=== PATIENT | male | born 1990 | race African-American/Black ===

== ENCOUNTER 2022-12-06 11:51 | Outpatient (REF) | payer OTHER, SELFPAY ==
[2022-12-06 14:08] LABS: MANUAL DIFF FLAG NO
[2022-12-06 14:21] LABS: Basophils Percent Auto 0.5 % (0-2); Eosinophils Absolute Auto 0.2 X10*3/uL (0.0-0.4); Eosinophils Percent Auto 2.3 % (0-4); Hematocrit 47.4 % (42.0-52.0); Hemoglobin 15.8 g/dl (14.0-18.0); Imm Gran Abs Auto 0.06 X10*3/uL (0.00-0.03); Imm Gran Pct Auto 0.7 % (0.0-0.4); Lymphocytes Absolute Auto 2.2 X10*3/uL (1.2-4.9); Lymphocytes Percent Auto 24.8 % (20-40); Mean Corpuscular HGB Conc 33.3 g/dl (31.0-36.0); Mean Corpuscular Hemoglobin 30.9 pg (27.0-33.0); Mean Corpuscular Volume 92.6 fL (80.0-98.0); Monocytes Absolute Auto 0.6 X10*3/uL (0.1-1.2); Monocytes Percent Auto 6.7 % (2-11); Neutrophils Absolute Auto 5.7 x10*3/uL (2.0-8.3); Platelet Count 248 X10*3/uL (160-400); Red Blood Count 5.12 X10*6/uL (4.60-5.80); Red Cell Distribution Width 13.9 % (11.0-16.0); White Blood Count 8.7 X10*3/uL (4.8-10.8)
[2022-12-06 15:20] LABS: Alanine Aminotransferase 22 U/L (0-40); Albumin Level 4.6 g/dL (3.5-5.0); Alkaline Phosphatase 98 U/L (39-117); Anion Gap 14 (12-20); Aspartate Amino Transferase 16 U/L (5-37); Bilirubin Total 0.8 mg/dL (0.0-1.0); Blood Urea Nitrogen 10 mg/dL (9-16); Calcium 9.6 mg/dL (8.4-10.2); Carbon Dioxide 24 mmol/L (22-29); Chloride 110 mmol/L (96-108); Cholesterol 256 mg/dL; Estimated Glomerular Filt Rate > 60; Glucose Random 101 mg/dL (60-115); HDL Cholesterol 37 mg/dL; LDL Cholesterol Calculated 199 mg/dl; Potassium 4.3 mmol/L (3.3-5.1); Sodium 144 mmol/L (135-145); Total Protein 6.9 g/dL (6.5-8.0); Triglycerides 103 mg/dL
[2022-12-06 15:49] LABS: Folate 12.2 ng/mL (> or = 4.0); Free T4 (Free Thyroxine) 1.09 ng/dL (0.71-1.85); Thyroid Stimulating Hormone 1.46 uIU/mL (0.32-4.0); Vitamin B12 1278 pg/mL (200-900)
== END 2022-12-06 11:52 | disposition home or self-care (01) ==
LOC: HO.HMGCLDS 11:51
PROVIDERS: Visit Provider Internal Medicine
DX: F20.9 Schizophrenia, unspecified (principal); E78.00 Pure hypercholesterolemia, unspecified
CPT/HCPCS: 36415; 80053; 80061; 82607; 82746; 84439; 84443; 85025

== ENCOUNTER 2023-04-25 22:49 | Emergency (ER) | payer OTHER, SELFPAY ==
--- NOTE | ~2023-04-25 | CT_ITS ---
EXAMINATION: CT HEAD WITHOUT CONTRAST CLINICAL INFORMATION: Syncope. Head strike. COMPARISON: None. TECHNIQUE: Contiguous axial imaging was performed from the skull base to vertex without intravenous administration of contrast. Coronal and sagittal reformatted images are performed at the CT scanner. [This CT examination was performed using dose optimization techniques as appropriate, variously including the following: *Automated exposure control *Adjustment of mA and/or kV according to patient size (this includes techniques or standardized protocols for targeted exams where dose is matched to indication/reason for exam; i.e. extremities or head) *Use of iterative reconstruction technique] DLP: 791 mGy-cm. FINDINGS: There is no evidence of acute intracranial hemorrhage or territorial infarction. No abnormal mass-effect or midline shift is seen. [place] to white matter differentiation is well preserved. No extra-axial fluid collections are identified. The ventricles are normal in size. There is no abnormal attenuation within the brain parenchyma. There is no osseous abnormality. The mastoid air cells and visualized portions of the paranasal sinuses are well-aerated. CT/CT head/brain wo IV con IMPRESSION: No acute intracranial pathology.
[2023-04-25 22:53] VITALS: BP 125/84; BP 144/102; PULSE 102; PULSE 91; RESP 18; TEMP 36.9; O2SAT 95; O2SAT 97; BMI 36.2
--- NOTE | 2023-04-25 23:20 | ED_ITS ---
HPI - Syncope General Chief Complaint: Syncope Stated Complaint: +loc w/head lacs per ems Time Seen by Provider: 04/25/23 22:50 Source: patient and EMS (Received report from EMS) Mode of arrival: EMS Limitations: no limitations History of Present Illness HPI narrative: Patient is a 32-year-old male presents emergency department for evaluation of the syncopal episode. Reportedly patient was sitting down for a few hours, upon standing he reports feeling lightheaded, and states that he passed out, believes that he struck his head on the closet door. This was unwitnessed. Duration of LOC was brief, his mother was upstairs and she heard a thump then came downstairs immediately. Patient was alert at this time, and had reported that he hit his head. Patient denies any precipitating symptoms. Denies headache, vision changes, confusion, neck pain, neck stiffness, weakness, chest pain, shortness of breath, difficulty breathing, nausea vomiting, abdominal pain, numbness or tingling of the extremities. Denies any ETOH/drug usage. Per mother, patient has a history of schizophrenia and history of self-harm attempts, but this presentation and his affect afterwards does not appear consistent with prior intentional self-harm attempts. Patient at this time is without any complaints. Lacerations to forehead are without active bleeding at this time. Related Data Home Medications Medication Instructions Recorded Confirmed clozapine 100 mg tablet 300 mg PO DAILY 08/11/22 08/11/22 fluoxetine 40 mg capsule 40 mg PO DAILY 08/11/22 08/11/22 Allergies Allergy/AdvReac Type Severity Reaction Status Date / Time No Known Allergies Allergy Verified 08/11/22 09:19 [No Known Allergies*] Review of Systems Review of Systems: Yes all other systems are reviewed and are negative [facility] Past Medical History Attestation statement: The following information was validated with the patient. Source: old records reviewed Family History Family History (Updated 08/11/22 @ 09:41 by Chente Arango MD) Mother No problems noted. Father No problems noted. Brother No problems noted. Maternal Grandmother Breast cancer Social History Social History (Updated 08/11/22 @ 09:42 by Chente Arango MD) Housing: Condominium Alcohol intake: current Alcohol intake frequency: holidays/special occasions only Patient Tobacco Use Status: Former Tobacco user Years Smoked: quit May 2022 Smoked in Last 30 Days: Yes Use of substances other than those prescribed or required for medical reasons: No Advance Directives: No Advance Directives Information Provided: Yes service: No Current occupational status: unemployed Cognitive needs: No Hearing needs: No Vision needs: Yes Physical Exam Vital Signs: Vital Signs: Last Vital Signs Temp 98.9 F 04/26/23 00:18 Pulse 91 04/26/23 00:18 Resp 20 04/26/23 00:18 BP 133/76 04/26/23 00:18 Pulse Ox 97 04/26/23 00:18 O2 Del Method Room Air 04/26/23 00:18 BMI result Body Mass Index 36.2 Vital signs have been reviewed as normal and appeared to be correct. Blood pressure normal.? Heart rate normal.? Respiration rate normal. Temperature normal.? Oxygen saturation normal. Const: Other: Appearance: Alert.?Oriented to person, place and time. No acute distress.?Normal affect. Head: Normocephalic, superficial linear lacerations approximately 3 cm, no active bleeding to midline anterior forehead Eyes: Pupils equal, round and reactive to light. EOMI. Conjunctiva and sclera normal? No Jennings sign noted. No raccoon eyes noted ENT: No septal hematoma, nares patent bilaterally. External auditory canal normal tympanic membrane pearly quarles and intact bilaterally. Dentition normal, no fractured teeth. No lesions or lacerations of oropharynx. Uvula midline. Moist mucous membranes. Neck: Normal inspection.? Neck supple.??No palpable midline tenderness, step- off, deformities. CVS: Heart sounds normal. Normal heart rate and rhythm.? Pulses normal.?? Respiratory: No respiratory distress.? Lung sounds clear to auscultation bilaterally?? Abdomen: Soft and non-tender. Normoactive bowel sounds. ?? Skin: Skin warm and dry.? Normal skin color.? Normal skin turgor.?? Extremities: No lower extremity edema.? Neuro: Moves all extremities spontaneously. Sensation intact bilaterally. CN II- XII intact. No focal neuro deficits. Course Reevaluation(s) Reevaluation #1: No red flag symptoms in history, no preceding symptoms such as chest pain, shortness of breath, palpitations, or neurological deficit, nonexertional, no pertinent past medical history, no reported past medical history and family of sudden cardiac at a young age or cardiomyopathy. With no reports of short ness of breath. No significant EKG abnormality,/signs of ischemia, no bradycardia, no hypotension. Orthostatic vital signs are negative. CT of the head without acute intracranial pathology at this time Time: 00:07 Reevaluation #2: EKG with no acute ischemia, no STEMI, normal sinus rhythm. CBC is overall unremarkable. CMP is overall unremarkable. BMP within normal limits. Troponin <2.7, unlikely ACS. D-dimer <150, unlikely PE. History seems most consistent with vasovagal episode. At this time patient is stable for discharge home. Lacerations to the forehead very superficial, cleanse with normal saline, applie d Steri-Strips and skin glue. Reviewed worrisome signs and symptoms that would warrant re-evaluation in the emergency department. Patient and mother verbalized understanding. Will follow up with primary care outpatient. Reviewed case with ED attending, agrees with plan of care. Time: 01:24 Medical Decision Making Medical Decision Making [facility] Narrative: Patient is a 32-year-old male with past medical history of obesity, schizophrenia presenting to emergency department for evaluation of a syncopal episode with sustained lacerations to forehead. Patient reports otherwise feeling well throughout today, upon standing developed lightheadedness and subsequently syncopized. Use of anticoagulants. However given mechanism of injury and syncope will obtain CT of the head for further evaluation. Will obtain CBC to evaluate for leukocytosis/ anemia, CMP and lipase to evaluate for abnormal electrolytes /abnormal renal function/ abnormal hepatic/biliary function, EKG and troponin to evaluate for ischemia/ACS, and Urinalysis. Will obtain orthostatic vital signs. Differential Diagnosis Differential Diagnoses: The differential diagnosis associated with the presentation includes (Orthostatic hypotension, dehydration, ACS, PE, infectious etiology, arrhythmia, SAH, CVA) Admission/Observation Consideration of admission/observation: Escalation of care including admission/observation considered I considered admission for patient, however high-risk past medical history, no abnormal serum labs, EKG, head CT findings. Outpatient follow-up most lambert ropriate Lab Data [facility] Lab Attestation statement: I reviewed the patient's lab results. 04/26/23 00:14 04/26/23 00:14 Labs: Lab Results 04/26/23 04/26/23 04/26/23 Range/Units 00:14 00:14 00:14 WBC 11.3 H (4.8-10.8) X10*3/uL RBC 4.72 (4.60-5.80) X10*6/uL Hgb 14.7 (14.0-18.0) g/dl Hct 43.4 (42.0-52.0) % MCV 91.9 (80.0-98.0) fL MCH 31.1 (27.0-33.0) pg MCHC 33.9 (31.0-36.0) g/dl RDW 13.7 (11.0-16.0) % Plt Count 207 (160-400) X10*3/uL MPV 10.8 (9.4-12.4) fL Immature Gran % (Auto) 0.9 H (0.0-0.4) % Neut % (Auto) 64.5 (45-73) % Lymph % (Auto) 22.9 (20-40) % [place] % (Auto) 7.7 (2-11) % Eos % (Auto) 3.6 (0-4) % Baso % (Auto) 0.4 (0-2) % Lymph # (Auto) 2.6 (1.2-4.9) X10*3/uL [place] # (Auto) 0.9 (0.1-1.2) X10*3/uL Eos # (Auto) 0.4 (0.0-0.4) X10*3/uL Baso # (Auto) 0.1 (0.0-0.2) X10*3/uL Abs Immat Gran (auto) 0.10 H (0.00-0.03) X10*3/uL Absolute Neuts (auto) 7.3 (2.0-8.3) x10*3/uL Absolute Nucleated RBC 0.000 (0.0-0.012) X10*3/uL Nucleated RBC % (auto) 0.0 (0.0-0.2) /100WBC PT (10.0-13.1) SEC INR (0.9-1.1) D-Dimer High Sensitivty NG/ML Sodium 144 (135-145) mmol/L Potassium 3.7 (3.3-5.1) mmol/L Chloride 109 H (96-108) mmol/L Carbon Dioxide 24 (22-29) mmol/L Anion Gap 15 (12-20) BUN 12 (9-16) mg/dL Creatinine 1.11 (0.5-1.4) mg/dL Estim Creat Clear Calc 118.4 Estimated GFR > 60 Random Glucose 103 (60-115) mg/dL Calcium 9.8 (8.4-10.2) mg/dL Magnesium 2.1 (1.6-2.6) mg/dL Total Bilirubin 0.5 (0.0-1.0) mg/dL AST 16 (5-37) U/L ALT 21 (0-40) U/L Alkaline Phosphatase 93 (39-117) U/L Troponin I High Sens < 2.7 (<3.5-35.0) ng/L B-Natriuretic Peptide (<100) pg/mL Total Protein 6.9 (6.5-8.0) g/dL Albumin 4.2 (3.5-5.0) g/dL Lipase 33 (8-78) U/L Ethyl Alcohol mg/dL COVID-19 (RADHA) (Negative) COVID-19 Clin Com 04/26/23 04/26/23 04/26/23 Range/Units 00:14 00:14 00:14 WBC (4.8-10.8) X10*3/uL RBC (4.60-5.80) X10*6/uL Hgb (14.0-18.0) g/dl Hct (42.0-52.0) % MCV (80.0-98.0) fL MCH (27.0-33.0) pg MCHC (31.0-36.0) g/dl RDW (11.0-16.0) % Plt Count (160-400) X10*3/uL MPV (9.4-12.4) fL Immature Gran % (Auto) (0.0-0.4) % Neut % (Auto) (45-73) % Lymph % (Auto) (20-40) % [place] % (Auto) (2-11) % Eos % (Auto) (0-4) % Baso % (Auto) (0-2) % Lymph # (Auto) (1.2-4.9) X10*3/uL [place] # (Auto) (0.1-1.2) X10*3/uL Eos # (Auto) (0.0-0.4) X10*3/uL Baso # (Auto) (0.0-0.2) X10*3/uL Abs Immat Gran (auto) (0.00-0.03) X10*3/uL Absolute Neuts (auto) (2.0-8.3) x10*3/uL Absolute Nucleated RBC (0.0-0.012) X10*3/uL Nucleated RBC % (auto) (0.0-0.2) /100WBC PT 11.4 (10.0-13.1) SEC INR 1.0 (0.9-1.1) D-Dimer High Sensitivty < 150 NG/ML Sodium (135-145) mmol/L Potassium (3.3-5.1) mmol/L Chloride (96-108) mmol/L Carbon Dioxide (22-29) mmol/L Anion Gap (12-20) BUN (9-16) mg/dL Creatinine (0.5-1.4) mg/dL Estim Creat Clear Calc Estimated GFR Random Glucose (60-115) mg/dL Calcium (8.4-10.2) mg/dL Magnesium (1.6-2.6) mg/dL Total Bilirubin (0.0-1.0) mg/dL AST (5-37) U/L ALT (0-40) U/L Alkaline Phosphatase (39-117) U/L Troponin I High Sens (<3.5-35.0) ng/L B-Natriuretic Peptide (<100) pg/mL Total Protein (6.5-8.0) g/dL Albumin (3.5-5.0) g/dL Lipase (8-78) U/L Ethyl Alcohol < 10 mg/dL COVID-19 (RADHA) Negative (Negative) COVID-19 Clin Com See Note 04/26/23 Range/Units 00:14 WBC (4.8-10.8) X10*3/uL RBC (4.60-5.80) X10*6/uL Hgb (14.0-18.0) g/dl Hct (42.0-52.0) % MCV (80.0-98.0) fL MCH (27.0-33.0) pg MCHC (31.0-36.0) g/dl RDW (11.0-16.0) % Plt Count (160-400) X10*3/uL MPV (9.4-12.4) fL Immature Gran % (Auto) (0.0-0.4) % Neut % (Auto) (45-73) % Lymph % (Auto) (20-40) % [place] % (Auto) (2-11) % Eos % (Auto) (0-4) % Baso % (Auto) (0-2) % Lymph # (Auto) (1.2-4.9) X10*3/uL [place] # (Auto) (0.1-1.2) X10*3/uL Eos # (Auto) (0.0-0.4) X10*3/uL Baso # (Auto) (0.0-0.2) X10*3/uL Abs Immat Gran (auto) (0.00-0.03) X10*3/uL Absolute Neuts (auto) (2.0-8.3) x10*3/uL Absolute Nucleated RBC (0.0-0.012) X10*3/uL Nucleated RBC % (auto) (0.0-0.2) /100WBC PT (10.0-13.1) SEC INR (0.9-1.1) D-Dimer High Sensitivty NG/ML Sodium (135-145) mmol/L Potassium (3.3-5.1) mmol/L Chloride (96-108) mmol/L Carbon Dioxide (22-29) mmol/L Anion Gap (12-20) BUN (9-16) mg/dL Creatinine (0.5-1.4) mg/dL Estim Creat Clear Calc Estimated GFR Random Glucose (60-115) mg/dL Calcium (8.4-10.2) mg/dL Magnesium (1.6-2.6) mg/dL Total Bilirubin (0.0-1.0) mg/dL AST (5-37) U/L ALT (0-40) U/L Alkaline Phosphatase (39-117) U/L Troponin I High Sens (<3.5-35.0) ng/L B-Natriuretic Peptide < 10 (<100) pg/mL Total Protein (6.5-8.0) g/dL Albumin (3.5-5.0) g/dL Lipase (8-78) U/L Ethyl Alcohol mg/dL COVID-19 (RADHA) (Negative) COVID-19 Clin Com Independent Interpretation I performed an independent interpretation of an: EKG and CT Scan (I have personally interpreted CT imaging and agree with radiologist impression) Interpretation: Rate: 82 Rhythm: Normal sinus rhythm? [place]:? Normal Normal P waves.? Normal RHODA.?? Normal QRS complex.?? ST T wave :??No ST elevation, no ST depression qTC: 464 The study has been interpreted contemporaneously by me. Radiology Impression Discussion of test interpretation with radiology: I have reviewed the radiologist's reading. Radiologist Impression: CT/CT head/brain wo IV con IMPRESSION: No acute intracranial pathology. ? Independent Historian Clinical information obtained from an independent historian. History obtained from or confirmed by: Parent (Mother who confirms history) Discharge Plan Discharge Clinical Impression: Vasovagal syncope Patient Disposition: Home, Self-Care Instructions: Syncope (ED) Additional Instructions: As discussed, your blood work, and EKG were normal today. The CT imaging of your head was also normal. This all very reassuring. Please take caution to slowly change positions especially after sitting down for long periods. Be sure to stay well hydrated and drink plenty of fluids. Please contact your primary care provider and arrange for a follow-up visit within the next 1-3 days. You may return back to the emergency department with any new or worsening symptoms or concerns. Prescriptions: No Action fluoxetine 40 mg capsule 40 mg PO DAILY clozapine 100 mg tablet 300 mg PO DAILY Rx Instructions: Dr. Gonzalez [facility] Referrals: Physician,Unknown J [Primary Care Provider] - Interventions: ED Discharge Assessment Last Done: 04/26/23 01:49 Discharge Date/Time: 04/26/23 01:49
--- NOTE | 2023-04-25 23:20 | ECG_ITS ---
Test Reason : SYNCOPE Blood Pressure : / mmHG Vent. Rate : 082 BPM Atrial Rate : 082 BPM P-R Int : 128 ms QRS Dur : 096 ms QT Int : 398 ms P-R-T Axes : 000 047 017 degrees QTc Int : 464 ms Normal sinus rhythm Nonspecific T wave abnormality Abnormal ECG No previous ECGs available Referred By: Shayna Linda Electronically Signed By:MEME ISRAEL
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
[2023-04-25 23:58] VITALS: BP 117/73; PULSE 85
[2023-04-25 23:59] VITALS: BP 124/79; PULSE 85
[2023-04-26] VITALS: BP 118/72; PULSE 102
[2023-04-26 00:18] VITALS: BP 133/76; PULSE 91; RESP 20; TEMP 37.2; O2SAT 97
[2023-04-26 00:19] LABS: MANUAL DIFF FLAG NO
--- NOTE | 2023-04-26 00:19 | MHC.EDTECH ---
PATIENT EKG DONE AND WAS READ BY PROVIDER ,BLOOD DRAWN AND COVID SWAB COLLECTED AND SENT TO LAB ,ORTHOSTATICS VITALS DONE AND 0000 VITALS DONE ,PT AT BEDSIDE ,PT RESTING QUIETLY IN BED .
[2023-04-26 00:20] LABS: Basophils Absolute Auto 0.1 X10*3/uL (0.0-0.2); Basophils Percent Auto 0.4 % (0-2); Eosinophils Absolute Auto 0.4 X10*3/uL (0.0-0.4); Eosinophils Percent Auto 3.6 % (0-4); Hematocrit 43.4 % (42.0-52.0); Hemoglobin 14.7 g/dl (14.0-18.0); Imm Gran Pct Auto 0.9 % (0.0-0.4); Lymphocytes Absolute Auto 2.6 X10*3/uL (1.2-4.9); Lymphocytes Percent Auto 22.9 % (20-40); Mean Corpuscular HGB Conc 33.9 g/dl (31.0-36.0); Mean Corpuscular Hemoglobin 31.1 pg (27.0-33.0); Mean Corpuscular Volume 91.9 fL (80.0-98.0); Mean Platelet Volume 10.8 fL (9.4-12.4); Monocytes Absolute Auto 0.9 X10*3/uL (0.1-1.2); Monocytes Percent Auto 7.7 % (2-11); Neutrophils Absolute Auto 7.3 x10*3/uL (2.0-8.3); Neutrophils Percent Auto 64.5 % (45-73); Platelet Count 207 X10*3/uL (160-400); Red Blood Count 4.72 X10*6/uL (4.60-5.80); Red Cell Distribution Width 13.7 % (11.0-16.0); White Blood Count 11.3 X10*3/uL (4.8-10.8)
[2023-04-26 00:26] LABS: Prothrombin Time 11.4 SEC (10.0-13.1)
[2023-04-26 00:35] LABS: COVID-19 Test Negative (Negative); Ethanol < 10 mg/dL; IDNOW Serial# 08D9AD1C
[2023-04-26 00:36] LABS: Alanine Aminotransferase 21 U/L (0-40); Albumin Level 4.2 g/dL (3.5-5.0); Alkaline Phosphatase 93 U/L (39-117); Anion Gap 15 (12-20); Aspartate Amino Transferase 16 U/L (5-37); Bilirubin Total 0.5 mg/dL (0.0-1.0); Blood Urea Nitrogen 12 mg/dL (9-16); Calcium 9.8 mg/dL (8.4-10.2); Carbon Dioxide 24 mmol/L (22-29); Chloride 109 mmol/L (96-108); Creatinine Clr Calc Pharmacy 118.4; D Dimer High Sensitivity < 150 NG/ML; Estimated Glomerular Filt Rate > 60; Glucose Random 103 mg/dL (60-115); Lipase 33 U/L (8-78); Magnesium 2.1 mg/dL (1.6-2.6); Potassium 3.7 mmol/L (3.3-5.1); Sodium 144 mmol/L (135-145); Total Protein 6.9 g/dL (6.5-8.0)
[2023-04-26 00:42] LABS: B Type Natriuretic Peptide < 10 pg/mL (<100)
[2023-04-26 00:47] LABS: Troponin-I High Sensitivity < 2.7 ng/L (<3.5-35.0)
== END 2023-04-26 01:49 | disposition home or self-care (01) ==
PROVIDERS: Nurse Practitioner Family; Emergency Provider Emergency Medicine
DX: S09.90XA Unspecified injury of head, initial encounter (principal); R55 Syncope and collapse; R51.9 Headache, unspecified; R06.02 Shortness of breath; W18.30XA Fall on same level, unspecified, initial encounter; Y92.9 Unspecified place or not applicable; Y99.9 Unspecified external cause status; Y93.9 Activity, unspecified; Z20.822 Contact with and (suspected) exposure to COVID-19; Z20.828 Contact with and (suspected) exposure to other viral communicable diseases; Z79.899 Other long term (current) drug therapy
CPT/HCPCS: 36415; 70450; 80053; 80307; 83690; 83735; 83880; 84484; 85025; 85379; 85610; 87635; 93005; 99284; 99285

== ENCOUNTER 2023-06-14 00:01 | Inpatient (IN) | payer OTHER, SELFPAY ==
[2023-06-14] VITALS (30 sets, daily range): BP systolic 98–134; BP diastolic 61–83; PULSE 18–112; RESP 16–77; TEMP 36.6–37.1; O2SAT 93–99; BMI 27.4
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
[2023-06-14] MEDS: OLANZapine 10 MG VIAL IM (00:17)
[2023-06-14] MEDS: Midazolam HCl/PF 2 MG/2 ML VIAL 5 MG IM (00:17)
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
[2023-06-14 00:55] LABS: Basophils Absolute Auto 0.1 X10*3/uL (0.0-0.2); Basophils Percent Auto 0.3 % (0-2); Eosinophils Absolute Auto 0.3 X10*3/uL (0.0-0.4); Eosinophils Percent Auto 1.6 % (0-4); Hematocrit 43.4 % (42.0-52.0); Hemoglobin 14.7 g/dl (14.0-18.0); Imm Gran Abs Auto 0.11 X10*3/uL (0.00-0.03); Imm Gran Pct Auto 0.7 % (0.0-0.4); Lymphocytes Absolute Auto 2.5 X10*3/uL (1.2-4.9); Lymphocytes Percent Auto 15.8 % (20-40); MANUAL DIFF FLAG NO; Mean Corpuscular HGB Conc 33.9 g/dl (31.0-36.0); Mean Corpuscular Hemoglobin 30.7 pg (27.0-33.0); Mean Corpuscular Volume 90.6 fL (80.0-98.0); Mean Platelet Volume 10.2 fL (9.4-12.4); Monocytes Absolute Auto 0.8 X10*3/uL (0.1-1.2); Monocytes Percent Auto 4.9 % (2-11); Neutrophils Absolute Auto 12.3 x10*3/uL (2.0-8.3); Neutrophils Percent Auto 76.7 % (45-73); Platelet Count 218 X10*3/uL (160-400); Red Blood Count 4.79 X10*6/uL (4.60-5.80); Red Cell Distribution Width 13.9 % (11.0-16.0)
[2023-06-14 01:08] LABS: Alanine Aminotransferase 19 U/L (0-40); Albumin Level 4.3 g/dL (3.5-5.0); Alkaline Phosphatase 79 U/L (39-117); Anion Gap 14 (12-20); Aspartate Amino Transferase 15 U/L (5-37); Bilirubin Total 0.4 mg/dL (0.0-1.0); Blood Urea Nitrogen 12 mg/dL (9-16); Calcium 9.3 mg/dL (8.4-10.2); Carbon Dioxide 20 mmol/L (22-29); Chloride 112 mmol/L (96-108); Creatinine Clr Calc Pharmacy 104.5; Estimated Glomerular Filt Rate > 60; Glucose Random 105 mg/dL (60-115); Potassium 3.4 mmol/L (3.3-5.1); Sodium 143 mmol/L (135-145); Total Protein 6.8 g/dL (6.5-8.0)
--- NOTE | 2023-06-14 02:34 | MHC.EDTECH ---
vitals sign taken ,patient sleeping ,patient observer at bedside .
[2023-06-14 02:38] LABS: Ethanol < 10 mg/dL
[2023-06-14 03:56] LABS: Acetaminophen LAB < 17 mcg/mL (<30); Salicylate < 5.0 mg/dL (15-30)
--- NOTE | 2023-06-14 07:54 | PC.NURSE ---
pt sleeping in stretcher at this time. respirations even and unlabored. skin warm and dry; color appropriate to ethnicity. vss. sitter at bedside.
--- NOTE | 2023-06-14 10:04 | PC.NURSE ---
Pt awoke, ambulate to bathroom. Mom here to visit. Steady to bathroom. Still awaiting urine spec
--- NOTE | 2023-06-14 10:33 | PC.NURSE ---
Mom brought pt phone, pt aware no cell phone use, pt agreeable. Placed with other belongings Locker 10
[2023-06-14 13:23] LABS: Amphetamine Screen Urine Not Detected (Not Detect); Barbiturates, Urine Not Detected (Not Detect); Benzodiazepines Screen Urine POSITIVE (Not Detect); Cannabinoid Screen Urine POSITIVE (Not Detect); Cocaine Screen Urine Not Detected (Not Detect); Fentanyl, urine Not Detected (Not Detect); Opiate Screen Urine Not Detected (Not Detect); Phencyclidine Screen Urine Not Detected (Not Detect)
[2023-06-14 16:51] LABS: Appearance Urine Clear; Color Urine Yellow; Glucose Urine UA Negative (Negative); Leukocyte Esterase Urine Trace (Negative); Nitrite Urine Negative (Negative); PH 6.5 (5.0-9.0); Specific Gravity - Urine 1.025 (1.005-1.025); UMIC TRIGGER UA YES; Urine Blood Negative (Negative); Urine Ketones Trace mg/dL (Negative); Urine Protein Trace mg/dL (Neg-Trace)
[2023-06-14 16:56] LABS: Bacteria Urine None Seen (None Seen); Hyaline Casts Urine 0-2 /LPF (0-2); RBC Urine 0-2 /HPF (0-2); Squamous Epithelial Cell Urine 0-2 /HPF (0-2); WBC Urine 0-5 /HPF (0-5)
[2023-06-14] MEDS: diphenhydrAMINE HCL 50 MG/ML VIAL IM (17:03)
[2023-06-14] MEDS: LORazepam 2 MG/ML VIAL IM (17:03)
[2023-06-14] MEDS: Haloperidol Lactate 5 MG/ML VIAL IM (17:04)
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
--- NOTE | 2023-06-14 18:38 | PC.NURSE ---
Left arm released as pt requesting to eat dinner. Security and Jeffrey PA aware. Pt able to state he can remain safe at this time. Will attempt another limb when appropriate. Pt denies pain or discomfort.
--- NOTE | 2023-06-14 22:15 | PHA.MEDREC ---
Pharmacy Consult ? Medication Reconciliation Pharmacy has completed the medication reconciliation. Patient report medications. Reported last dose of clozaril was last night 06/13/23
--- NOTE | 2023-06-15 | ECG_ITS ---
Test Reason : PSYCH MED Blood Pressure : / mmHG Vent. Rate : 077 BPM Atrial Rate : 077 BPM P-R Int : 124 ms QRS Dur : 094 ms QT Int : 390 ms P-R-T Axes : 011 062 030 degrees QTc Int : 441 ms Normal sinus rhythm Normal ECG When compared with ECG of 25-APR-2023 23:47, Nonspecific T wave abnormality no longer evident in Lateral leads Referred By: Rudy Parada Electronically Signed By:Juan Diego Marin
--- NOTE | 2023-06-15 00:17 | PC.NURSE ---
this RN assumed care of patient at 23:15. went in room to update vital signs and pt found to be in 3 point physical restraints (RA, LL, RL). looking back into chart pt was placed in restraints at 16:52. flight manager and provider made aware. This RN called security to assist at bedside with removal of all three restraints. all restraints removed at 23:30. pt calm and cooperative, pt speaking clear full sentences responding to questions appropriately, cms intact, skin checked at all 4 extremities with provider at bedside. pt moving all extremities with no issues, offers no current complaints, reports just feeling tired. pt given cherise crackers and water as requested. vital signs updated, will ctm closely.
[2023-06-15 01:26] VITALS: BP 102/67; PULSE 60; RESP 18; O2SAT 98
--- NOTE | 2023-06-15 02:18 | PC.NURSE ---
pt is sleeping comfortably on stretcher in no apparent distress. respirations are even and unlabored. call fontaine within reach, sitter in place, will ctm
[2023-06-15 02:36] VITALS: BP 102/64; PULSE 70; O2SAT 99
[2023-06-15 07:22] VITALS: BP 101/74; PULSE 69; RESP 17; O2SAT 99
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
[2023-06-15 15:57] LABS: COVID-19 Test Negative (Negative); IDNOW Serial# 08D9AD1C
[2023-06-15 16:16] VITALS: BP 114/75; PULSE 70; RESP 18; TEMP 37; O2SAT 98
--- NOTE | 2023-06-15 19:28 | PC.NURSE ---
Pt aox4 resting at the bedside. Calm and cooperative. Denies SI/HI at this time. 1:1 sitter at bedside.
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
--- NOTE | 2023-06-15 20:15 | PC.NURSE ---
Pts momKailey, called for an update.
[2023-06-15] MEDS: cloZAPine 100 MG TABLET 300 MG PO (21:38)
--- NOTE | 2023-06-16 02:11 | PC.NURSE ---
Pt sleeping at the bedside, in no apparent distress. Breaths are even regular and unlabored. 1:1 sitter at bedside. Will continue to monitor.
[2023-06-16 06:00] VITALS: RESP 16
--- NOTE | 2023-06-16 07:51 | MHC.CARE ---
FYI - Per collateral reports, pt does not live in a care home. Pt resides at home with his Mother, step father, and younger brother.
--- NOTE | 2023-06-16 09:09 | PC.NURSE ---
pt is a/o x 3 no sob/arnoldo noted speaks in full sentences. pt denies any si/hi. no restraints. pt is sitting up in bed. pt aware of plan of care.
--- NOTE | 2023-06-16 09:47 | PC.NURSE ---
rn to rn report given to juan david fiore pt is agreeable to going to the pod. pt to the pod with event security officer. pt aware of plan of care.
--- NOTE | 2023-06-16 10:01 | MHC.CARE ---
CARE Team received call from Pts mother stating Pt was very paranoid and stating people are out to get him and he is afraid staff are poisoning him , she stated she is concerned he is going to freak out again. T/w notified RN regarding Pts mothers concern
--- NOTE | 2023-06-16 11:58 | MHC.CARE ---
Pt gave t/w verbal permission to provide information to his mother regarding plan of care.
[2023-06-16 16:35] VITALS: BP 127/83; PULSE 78; RESP 18; TEMP 36.1; O2SAT 97
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
[2023-06-16 21:00] VITALS: BP 125/72; PULSE 68; RESP 18; TEMP 36.8; O2SAT 99
[2023-06-16] MEDS: cloZAPine 100 MG TABLET 300 MG PO (21:26)
[2023-06-17 12:10] VITALS: BP 120/74; PULSE 72; RESP 16; TEMP 36.6; O2SAT 97
[2023-06-17] MEDS: FLUoxetine HCl 20 MG CAPSULE 40 MG PO (13:12)
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
[2023-06-17 20:00] VITALS: BP 132/79; PULSE 90; RESP 16; TEMP 36.1; O2SAT 99
[2023-06-17] MEDS: cloZAPine 100 MG TABLET 300 MG PO (21:01)
[2023-06-18 06:00] VITALS: BP 131/80; PULSE 111; RESP 16; TEMP 35.9; O2SAT 97
[2023-06-18] MEDS: FLUoxetine HCl 20 MG CAPSULE 40 MG PO (09:15)
--- NOTE | 2023-06-18 16:02 | P.PNPSI_ITS ---
Subjective Subjective Date of Service: 06/18/23 Reason For Visit: psychosis Interim History: pt seen was calm cooperative not combative accepting medication withdrawn Medication Compliance: Yes Mental Status Exam Mental Status Exam Narrative: Appearance:lambert dress lying in bed Behavior: calm Psychomotor: no overt agitation Speech: clear, normal rate/rhythm/volume, spontaneous TP: mostly linear TC: thought blocking, some tangentiality SI: denies VH/AH: denies Delusions: none expressed Insight/judgment: impaired x 2. Diagnostics Vital Signs (24Hr): Vital Signs - 24 hr 06/17/23 20:00 06/18/23 06:00 Temperature 97 F 96.7 F L Pulse Rate 90 111 H Respiratory Rate 16 16 Blood Pressure 132/79 131/80 Pulse Oximetry 99 97 Oxygen Delivery Method Room Air Room Air BMI result Body Mass Index 27.4 Labs 06/14/23 00:51 06/14/23 00:51 Medications Medications Current Medications Acetaminophen (Acetaminophen 325 Mg Tablet) 650 mg PO Q6H PRN PRN Reason: Headache/Pain Mild Scale (1-3) Al Hydroxide/Mg Hydroxide (Magnesium Hydrox/Alum Hydrox 30 Ml Oral.Susp) 30 ml PO Q6H PRN PRN Reason: Heartburn/Nausea Clozapine (Clozapine 100 Mg Tablet) 300 mg PO BEDTIME [facility] Last Admin: 06/17/23 21:01 Dose: 300 mg Fluoxetine HCl (Fluoxetine Hcl 20 Mg Capsule) 40 mg PO DAILY [facility] Last Admin: 06/18/23 09:15 Dose: 40 mg Haloperidol (Haloperidol 5 Mg Tablet) 5 mg PO Q6H PRN PRN Reason: agitation Hydroxyzine HCl (Hydroxyzine Hcl 25 Mg Tablet) 25 mg PO Q6H PRN PRN Reason: Anxiety Lorazepam (Lorazepam 1 Mg Tablet) 2 mg PO Q6H PRN PRN Reason: agitation Magnesium Hydroxide (Milk Of Magnesia 30 Ml Oral.Susp) 30 ml PO DAILY PRN PRN Reason: Constipation Nicotine Polacrilex (Nicotine Polacrilex 2 Mg Gum) 4 mg BUCCAL Q2H PRN PRN Reason: Nicotine Cravings Trazodone HCl (Trazodone Hcl 50 Mg Tablet) 50 mg PO BEDTIME [id number] PRN PRN Reason: Insomnia Allergies Allergies Allergy/AdvReac Type Severity Reaction Status Date / Time No Known Allergies Allergy Verified 08/11/22 09:19 [No Known Allergies*] Assessment & Plan Assessment & Plan (1) Schizophrenia: Status: Acute Code(s): F20.9 - Schizophrenia, unspecified Plan continue clozapine 300 mg QHS, prozac 40 mg daily. further collateral, observation, and assessment of Sx. clozapine level drawn, pending. 06/18 cont plan of care pt cooperative somewhat fatigued Reason for continued inpatient stay Substantial Risk for: inability to function and rapid decompensation Time Spent With Patient Time: Total time managing care of this patient today ____ minutes.
[2023-06-18 19:40] VITALS: BP 116/70; PULSE 82; RESP 16; TEMP 36.6; O2SAT 100
[2023-06-18] MEDS: cloZAPine 100 MG TABLET 300 MG PO (20:28)
[2023-06-19] MEDS: FLUoxetine HCl 20 MG CAPSULE 40 MG PO (09:22)
[2023-06-19 09:50] VITALS: BP 90/52; PULSE 88; RESP 16; TEMP 36.8; O2SAT 96
--- NOTE | 2023-06-19 10:08 | HO.PSYCHPN ---
Subjective Subjective Date of Service: 06/19/23 Reason For Visit: psychosis Interim History: Patient has been in behavioral control since being on the unit. Patient seen case reviewed with nursing staff 06/19/2023 Patient denies commands to harm others or himself. Seems somewhat isolated and sedated Medication Compliance: Yes Mental Status Exam Mental Status Exam Narrative: Appearance:lambert dress lying in bed Behavior: calm Psychomotor: no overt agitation Speech: clear, normal rate/rhythm/volume, spontaneous TP: mostly linear TC: thought blocking, some tangentiality SI: denies VH/AH: denies Delusions: none expressed Insight/judgment: impaired x 2. Diagnostics Vital Signs (24Hr): Vital Signs - 24 hr 06/18/23 19:40 06/19/23 09:50 Temperature 97.8 F 98.2 F Pulse Rate 82 88 Respiratory Rate 16 16 Blood Pressure 116/70 90/52 L Pulse Oximetry 100 96 Oxygen Delivery Method Room Air Room Air BMI result Body Mass Index 27.4 Labs 06/14/23 00:51 06/14/23 00:51 Medications Medications Current Medications Acetaminophen (Acetaminophen 325 Mg Tablet) 650 mg PO Q6H PRN PRN Reason: Headache/Pain Mild Scale (1-3) Al Hydroxide/Mg Hydroxide (Magnesium Hydrox/Alum Hydrox 30 Ml Oral.Susp) 30 ml PO Q6H PRN PRN Reason: Heartburn/Nausea Clozapine (Clozapine 100 Mg Tablet) 300 mg PO BEDTIME [facility] Last Admin: 06/18/23 20:28 Dose: 300 mg Fluoxetine HCl (Fluoxetine Hcl 20 Mg Capsule) 40 mg PO DAILY [facility] Last Admin: 06/19/23 09:22 Dose: 40 mg Haloperidol (Haloperidol 5 Mg Tablet) 5 mg PO Q6H PRN PRN Reason: agitation Hydroxyzine HCl (Hydroxyzine Hcl 25 Mg Tablet) 25 mg PO Q6H PRN PRN Reason: Anxiety Lorazepam (Lorazepam 1 Mg Tablet) 2 mg PO Q6H PRN PRN Reason: agitation Magnesium Hydroxide (Milk Of Magnesia 30 Ml Oral.Susp) 30 ml PO DAILY PRN PRN Reason: Constipation Nicotine Polacrilex (Nicotine Polacrilex 2 Mg Gum) 4 mg BUCCAL Q2H PRN PRN Reason: Nicotine Cravings Trazodone HCl (Trazodone Hcl 50 Mg Tablet) 50 mg PO BEDTIME [id number] PRN PRN Reason: Insomnia Allergies Allergies Allergy/AdvReac Type Severity Reaction Status Date / Time No Known Allergies Allergy Verified 08/11/22 09:19 [No Known Allergies*] Assessment & Plan Assessment & Plan (1) Schizophrenia: Status: Acute Code(s): F20.9 - Schizophrenia, unspecified Plan continue clozapine 300 mg QHS, prozac 40 mg daily. further collateral, observation, and assessment of Sx. clozapine level drawn, pending. 06/18 cont plan of care pt cooperative somewhat fatigued 06/19/2023 Patient seen chart reviewed case reviewed with nursing staff there is a Prozac clozapine interactions this should increase clozapine levels monitor response Reason for continued inpatient stay Substantial Risk for: harm to others and rapid decompensation Time Spent With Patient Time: Total time managing care of this patient today ____ minutes.
[2023-06-19 20:50] VITALS: BP 129/70; PULSE 85; RESP 16; TEMP 36.6; O2SAT 95
[2023-06-19] MEDS: cloZAPine 100 MG TABLET 300 MG PO (21:10)
[2023-06-20] MEDS: FLUoxetine HCl 20 MG CAPSULE 40 MG PO (11:35)
[2023-06-20 11:49] VITALS: BP 127/69; PULSE 96; RESP 16; TEMP 36.6; O2SAT 99
--- NOTE | 2023-06-20 16:08 | P.PNPSI_ITS ---
Subjective Subjective Date of Service: 06/20/23 Reason For Visit: psychosis Interim History: calm, cooperative. feeling well, denies any psych Sx. feeling reasonably safe and comfortable on the unit. per staff, quiet, depressed, flat. taking meds. appears preoccupied. isolative. dep 7, anx 2. feeling ready for DC. Mental Status Exam Mental Status Exam Narrative: Appearance: wearing street clothes, good hygiene in NAD Behavior: calm Psychomotor: no agitation Speech: clear, normal rate/rhythm/volume, spontaneous TP: linear TC: no delusions or paranoia expressed mood: i'm ok. SI: denies HI: denies VH/AH: denies Delusions: none expressed Insight/judgment: impaired x 2. Diagnostics Vital Signs (24Hr): Vital Signs - 24 hr 06/19/23 20:50 06/20/23 11:49 Temperature 97.8 F 97.8 F Pulse Rate 85 96 Respiratory Rate 16 16 Blood Pressure 129/70 127/69 Pulse Oximetry 95 99 Oxygen Delivery Method Room Air Room Air BMI result Body Mass Index 27.4 Labs 06/14/23 00:51 06/14/23 00:51 Medications Medications Current Medications Acetaminophen (Acetaminophen 325 Mg Tablet) 650 mg PO Q6H PRN PRN Reason: Headache/Pain Mild Scale (1-3) Al Hydroxide/Mg Hydroxide (Magnesium Hydrox/Alum Hydrox 30 Ml Oral.Susp) 30 ml PO Q6H PRN PRN Reason: Heartburn/Nausea Clozapine (Clozapine 100 Mg Tablet) 300 mg PO BEDTIME [facility] Last Admin: 06/19/23 21:10 Dose: 300 mg Fluoxetine HCl (Fluoxetine Hcl 20 Mg Capsule) 40 mg PO DAILY [facility] Last Admin: 06/20/23 11:35 Dose: 40 mg Haloperidol (Haloperidol 5 Mg Tablet) 5 mg PO Q6H PRN PRN Reason: agitation Hydroxyzine HCl (Hydroxyzine Hcl 25 Mg Tablet) 25 mg PO Q6H PRN PRN Reason: Anxiety Lorazepam (Lorazepam 1 Mg Tablet) 2 mg PO Q6H PRN PRN Reason: agitation Magnesium Hydroxide (Milk Of Magnesia 30 Ml Oral.Susp) 30 ml PO DAILY PRN PRN Reason: Constipation Nicotine Polacrilex (Nicotine Polacrilex 2 Mg Gum) 4 mg BUCCAL Q2H PRN PRN Reason: Nicotine Cravings Trazodone HCl (Trazodone Hcl 50 Mg Tablet) 50 mg PO BEDTIME MRX1 PRN PRN Reason: Insomnia Allergies Allergies Allergy/AdvReac Type Severity Reaction Status Date / Time No Known Allergies Allergy Verified 08/11/22 09:19 [No Known Allergies*] Assessment & Plan Assessment & Plan (1) Schizophrenia: Status: Acute Code(s): F20.9 - Schizophrenia, unspecified Plan continue clozapine 300 mg QHS, prozac 40 mg daily. further collateral, observation, and assessment of Sx. clozapine level drawn, pending. 06/18 cont plan of care pt cooperative somewhat fatigued 06/19/2023 Patient seen chart reviewed case reviewed with nursing staff there is a Prozac clozapine interactions this should increase clozapine levels monitor response 06/20: continue current mgmt. awaiting clozapine level. D/W with Dr. Gonzalez [facility]. Reason for continued inpatient stay Substantial Risk for: harm to self, harm to others, inability to function and rapid decompensation Time Spent With Patient Time: Total time managing care of this patient today __25__ minutes.
[2023-06-20 21:45] VITALS: BP 117/66; PULSE 78; RESP 16; TEMP 36.4; O2SAT 95
[2023-06-20] MEDS: cloZAPine 100 MG TABLET 300 MG PO (22:00)
[2023-06-21 09:07] LABS: Neut%MD 58.6 %; Neutrophils Absolute Auto 5.1 x10*3/uL (2.0-8.3); WBCANC 8.6 X10*3/uL
[2023-06-21] MEDS: FLUoxetine HCl 20 MG CAPSULE 40 MG PO (10:26)
--- NOTE | 2023-06-21 16:37 | P.PNPSI_ITS ---
Subjective Subjective Date of Service: 06/21/23 Reason For Visit: psychosis Interim History: calm, cooperative, no questions or complaints. per staff, isolative. difficult to engage. denies SI/HI/AVH. good sleep and appetite. napping, watching TV. Mental Status Exam Mental Status Exam Narrative: Appearance: wearing street clothes, good hygiene in NAD Behavior: calm Psychomotor: no agitation Speech: clear, normal rate/rhythm/volume, spontaneous TP: linear TC: no delusions or paranoia expressed mood: euthymic SI: none expressed HI: none expressed VH/AH: none expressed Delusions: none expressed Insight/judgment: impaired x 2. Diagnostics Vital Signs (24Hr): Vital Signs - 24 hr 06/20/23 21:45 Temperature 97.6 F Pulse Rate 78 Respiratory Rate 16 Blood Pressure 117/66 Pulse Oximetry 95 Oxygen Delivery Method Room Air BMI result Body Mass Index 27.4 Labs 06/14/23 00:51 06/14/23 00:51 Labs: Laboratory Results - last 48 hr 06/21/23 08:33 Absolute Neuts (auto) 5.1 Medications Medications Current Medications Acetaminophen (Acetaminophen 325 Mg Tablet) 650 mg PO Q6H PRN PRN Reason: Headache/Pain Mild Scale (1-3) Al Hydroxide/Mg Hydroxide (Magnesium Hydrox/Alum Hydrox 30 Ml Oral.Susp) 30 ml PO Q6H PRN PRN Reason: Heartburn/Nausea Clozapine (Clozapine 100 Mg Tablet) 300 mg PO BEDTIME [facility] Last Admin: 06/20/23 22:00 Dose: 300 mg Fluoxetine HCl (Fluoxetine Hcl 20 Mg Capsule) 40 mg PO DAILY [facility] Last Admin: 06/21/23 10:26 Dose: 40 mg Haloperidol (Haloperidol 5 Mg Tablet) 5 mg PO Q6H PRN PRN Reason: agitation Hydroxyzine HCl (Hydroxyzine Hcl 25 Mg Tablet) 25 mg PO Q6H PRN PRN Reason: Anxiety Magnesium Hydroxide (Milk Of Magnesia 30 Ml Oral.Susp) 30 ml PO DAILY PRN PRN Reason: Constipation Nicotine Polacrilex (Nicotine Polacrilex 2 Mg Gum) 4 mg BUCCAL Q2H PRN PRN Reason: Nicotine Cravings Trazodone HCl (Trazodone Hcl 50 Mg Tablet) 50 mg PO BEDTIME MRX1 PRN PRN Reason: Insomnia Allergies Allergies Allergy/AdvReac Type Severity Reaction Status Date / Time No Known Allergies Allergy Verified 08/11/22 09:19 [No Known Allergies*] Assessment & Plan Assessment & Plan (1) Schizophrenia: Status: Acute Code(s): F20.9 - Schizophrenia, unspecified Plan continue clozapine 300 mg QHS, prozac 40 mg daily. further collateral, observation, and assessment of Sx. clozapine level drawn, pending. 06/18 cont plan of care pt cooperative somewhat fatigued 06/19/2023 Patient seen chart reviewed case reviewed with nursing staff there is a Prozac clozapine interactions this should increase clozapine levels monitor response 06/20: continue current mgmt. awaiting clozapine level. D/W with Dr. Gonzalez [facility]. 06/21: collateral obtained from [facility]. plan to increase clozapine by 25 mg tomorrow evening. stable. continue current mgmt today. Reason for continued inpatient stay Substantial Risk for: harm to self, harm to others and rapid decompensation Time Spent With Patient Time: Total time managing care of this patient today __35__ minutes.
[2023-06-21] MEDS: LORazepam 2 MG/ML VIAL IM (18:20)
[2023-06-21] MEDS: OLANZapine 10 MG VIAL IM (18:20)
[2023-06-21] MEDS: diphenhydrAMINE HCL 50 MG/ML VIAL IM (18:20)
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
[2023-06-21 18:35] VITALS: BP 136/86; PULSE 131; RESP 22; TEMP 36.3
[2023-06-21 18:50] VITALS: BP 146/98; PULSE 121; RESP 20; TEMP 36.8
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
[2023-06-21 19:05] VITALS: BP 148/96; PULSE 118; RESP 20; TEMP 36.7
[2023-06-21 19:20] VITALS: BP 146/90; PULSE 118; RESP 20; TEMP 36.8
[2023-06-21 19:35] VITALS: BP 144/88; PULSE 112; RESP 20; TEMP 36.9
[2023-06-21] MEDS: cloZAPine 100 MG TABLET 300 MG PO (19:40)
[2023-06-21] MEDS: Acetaminophen 325 MG TABLET 650 MG PO (19:40)
[2023-06-21] MEDS: traZODone HCL 50 MG TABLET PO (20:15)
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
[2023-06-22 03:41] LABS: HBc Num1 0.08 S/CO (0.00-0.79); HIV AB/AG Nonreactive (Nonreactive); HIV Num 1 0.07 S/CO (0.00-0.99); Hepatitis B Core Antibody Nonreactive (Nonreactive)
--- NOTE | 2023-06-22 07:43 | PM.CNGS ---
History of Present Illness Consult details Consult date: 06/22/23 Narrative: The patient is a 32-year-old gentleman who is admitted to the psych unit last night due to agitation and aggressive behavior. Last night, he sustained a left upper, lateral supraorbital laceration measuring approximate 1-1/2 cm. It was apparently clean and Dermabond applied in the emergency department with good tissue approximation. I was asked to evaluate the patient and the laceration to assess if sutures were needed. The patient is resting comfortably at this time. Review of Systems Review of Systems: Yes all other systems are reviewed and are negative Constitutional: Constitutional: Reports as per [facility] Family History Family History Mother No problems noted. Father No problems noted. Brother No problems noted. Maternal Grandmother Breast cancer Social History Social History Household Members: Family Housing: Apartment Do you presently have visiting nurse or other home services: No Alcohol intake: never Patient Tobacco Use Status: Current everyday Tobacco user Tobacco use type: Cigarette Cigarette Packs Per Day: 1 Cigarettes Per Day: 20.0 Years Smoked: quit May 2022 Smoked in Last 30 Days: Yes Patient Interested in Nicotine Replacement: Yes Patient Given Instructions on How to Stop Smoking: Yes Date Education Initiated: 06/16/23 Second Hand Smoke Exposure: No Use of substances other than those prescribed or required for medical reasons: Yes Substance Use Type: Marijuana Substance Use Frequency: Occasionally Last Used Substance: Unknown Currently Displaying Signs/Symptoms of Drug Intoxication Withdrawal: No Any prior treatment program specific to substance use: No Have you been hit, kicked, punched, or otherwise hurt by someone within the past year? If so, by whom?: No Do you feel safe in your current relationship?: No Current Relationship Is there a partner from a previous relationship who is making you feel unsafe now?: No Are you made to feel afraid or neglected: No Spiritual Healthcare Practices: Denies Quaker Healthcare Practices: Denies Cultural Healthcare Practices: Denies Advance Directives: No Advance Directives Information Provided: Yes Healthcare Proxy: No Guardian: No Do you have thoughts of harming others: None Do you have a plan to hurt others: No Plan Recently lost weight without trying: No How much weight loss: Not applicable Eating poorly because of decreased appetite: No Nutrition screen score: 0 Nutrition Risks: No Nutritional Risk Poor oral hygiene: No service: No Current occupational status: unemployed Sexual orientation: Don't Know Cognitive needs: No Hearing needs: No Vision needs: Yes Meds Allergies Allergy/AdvReac Type Severity Reaction Status Date / Time No Known Allergies Allergy Verified 08/11/22 09:19 [No Known Allergies*] Active Medications: Current Medications Acetaminophen (Acetaminophen 325 Mg Tablet) 650 mg PO Q6H PRN PRN Reason: Headache/Pain Mild Scale (1-3) Last Admin: 06/21/23 19:40 Dose: 650 mg Al Hydroxide/Mg Hydroxide (Magnesium Hydrox/Alum Hydrox 30 Ml Oral.Susp) 30 ml PO Q6H PRN PRN Reason: Heartburn/Nausea Clozapine (Clozapine 100 Mg Tablet) 300 mg PO BEDTIME [facility] Last Admin: 06/21/23 19:40 Dose: 300 mg Fluoxetine HCl (Fluoxetine Hcl 20 Mg Capsule) 40 mg PO DAILY [facility] Last Admin: 06/21/23 10:26 Dose: 40 mg Haloperidol (Haloperidol 5 Mg Tablet) 5 mg PO Q6H PRN PRN Reason: agitation Hydroxyzine HCl (Hydroxyzine Hcl 25 Mg Tablet) 25 mg PO Q6H PRN PRN Reason: Anxiety Magnesium Hydroxide (Milk Of Magnesia 30 Ml Oral.Susp) 30 ml PO DAILY PRN PRN Reason: Constipation Nicotine Polacrilex (Nicotine Polacrilex 2 Mg Gum) 4 mg BUCCAL Q2H PRN PRN Reason: Nicotine Cravings Trazodone HCl (Trazodone Hcl 50 Mg Tablet) 50 mg PO BEDTIME MRX1 PRN PRN Reason: Insomnia Last Admin: 06/21/23 20:15 Dose: 50 mg Home Medications Medication Instructions Recorded Confirmed Last Taken Type clozapine 100 mg tablet 300 mg PO BEDTIME 08/11/22 06/14/23 06/13/23 History fluoxetine 40 mg capsule 40 mg PO BEDTIME 08/11/22 06/14/23 06/13/23 History Physical Exam Vital Signs: Vital Signs: Last Vital Signs Temp 98.4 F 06/21/23 19:35 Pulse 112 H 06/21/23 19:35 Resp 20 06/21/23 19:35 BP 144/88 H 06/21/23 19:35 Pulse Ox 95 06/20/23 21:45 O2 Del Method Room Air 06/20/23 21:45 BMI result Body Mass Index 27.4 On exam, the patient is nontoxic He is normocephalic On his left upper orbit, laterally in the brow, there is an approximately 1.5 cm laceration with good tissue approximation by Dermabond and note surrounding hematoma measuring approximately 4-5 cm. There is no tenderness to suggest infection and there is no purulence. Results Labs 06/14/23 00:51 06/14/23 00:51 Labs: Urine 06/14/23 Range/Units 11:52 Urine Color Yellow Urine Appearance Clear Urine pH 6.5 (5.0-9.0) Ur Specific [place] 1.025 (1.005-1.025) Urine Protein Trace (Neg-Trace) mg/dL Urine Glucose (UA) Negative (Negative) mg/dL All other labs normal. Assessment and Plan (1) Schizoaffective disorder: Status: Acute (2) Agitation: Status: Acute (3) Hypercholesterolemia: Status: Acute (4) Schizophrenia: Status: Acute (5) Obesity (BMI 30-39.9): Status: Acute Plan The laceration is hemostatic and the Dermabond is intact with good tissue approximation. Therefore, there is no need for sutures. Patient may benefit from topical ice pack being applied as needed. There is no need for follow-up unless there is a change regarding the hematoma or incision. Thank you for asking me to evaluate him. Time Spent With Patient Time: Total time managing care of this patient today ____ minutes. Procedures Date of Service Date of Service: 06/22/23
[2023-06-22 10:30] VITALS: BP 130/81; PULSE 110; TEMP 36.8; O2SAT 98
[2023-06-22] MEDS: HaloperidoL 5 MG TABLET PO ×2 (11:00→19:44)
[2023-06-22] MEDS: FLUoxetine HCl 20 MG CAPSULE 40 MG PO (11:00)
[2023-06-22 12:47] LABS: HBsAGNum1 0.35 S/CO (0.00-0.99); Hepatitis B Surface Antigen Negative (Negative); ~HepC Num1 0.05 S/CO (0.00-0.79); ~Hepatitis B Surface Antibody REACTIVE (Nonreactive); ~Hepatitis C Antibody Nonreactive (Nonreactive)
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
[2023-06-22] MEDS: hydrOXYzine HCL 25 MG TABLET PO (19:44)
[2023-06-22] MEDS: cloZAPine 25 MG TABLET 350 MG PO (21:03)
[2023-06-22] MEDS: traZODone HCL 50 MG TABLET PO (21:04)
[2023-06-22 21:11] VITALS: BP 134/78; PULSE 96; TEMP 36.3; O2SAT 97
[2023-06-23 02:15] LABS: Clozapine (Clozaril) 177 mcg/L; Norclozapine 104 mcg/L (25-400)
[2023-06-23] MEDS: FLUoxetine HCl 20 MG CAPSULE 40 MG PO (12:04)
[2023-06-23] MEDS: Lithium Carbonate ER 450 MG TABLET.ER PO ×2 (14:09→21:12)
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
[2023-06-23 20:00] VITALS: BP 126/72; PULSE 107; RESP 16; TEMP 36.8; O2SAT 16
[2023-06-23] MEDS: traZODone HCL 50 MG TABLET PO (21:13)
[2023-06-24 06:00] VITALS: RESP 16
[2023-06-24] MEDS: FLUoxetine HCl 20 MG CAPSULE 40 MG PO (11:14)
[2023-06-24] MEDS: Lithium Carbonate ER 450 MG TABLET.ER PO (11:14)
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
[2023-06-24] MEDS: Lithium Carbonate ER 300 MG TABLET.ER 600 MG PO (21:32)
[2023-06-24] MEDS: traZODone HCL 50 MG TABLET PO (21:32)
[2023-06-25 11:30] VITALS: BP 130/80; PULSE 107; RESP 18; TEMP 36.3; O2SAT 99
[2023-06-25] MEDS: Lithium Carbonate ER 300 MG TABLET.ER 600 MG PO ×2 (11:39→20:35)
[2023-06-25] MEDS: FLUoxetine HCl 20 MG CAPSULE 40 MG PO (11:39)
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
[2023-06-25 20:33] VITALS: BP 120/82; PULSE 94; RESP 18; TEMP 36.8; O2SAT 97
[2023-06-25] MEDS: traZODone HCL 50 MG TABLET PO (20:35)
[2023-06-26 10:15] VITALS: BP 122/71; PULSE 105; RESP 16; TEMP 36.3; O2SAT 99
[2023-06-26] MEDS: FLUoxetine HCl 20 MG CAPSULE 40 MG PO (10:26)
[2023-06-26] MEDS: Lithium Carbonate ER 300 MG TABLET.ER 600 MG PO ×2 (10:26→20:53)
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
[2023-06-26 20:25] VITALS: BP 138/70; PULSE 98; RESP 18; TEMP 36.4; O2SAT 95
[2023-06-26] MEDS: traZODone HCL 50 MG TABLET PO (20:53)
[2023-06-27 08:05] VITALS: BP 126/79; PULSE 90; RESP 16; TEMP 36.6; O2SAT 98
[2023-06-27] MEDS: FLUoxetine HCl 20 MG CAPSULE 40 MG PO (08:54)
[2023-06-27] MEDS: Lithium Carbonate ER 300 MG TABLET.ER 600 MG PO ×2 (08:55→21:11)
[2023-06-27 09:16] LABS: Neut%MD 66.4 %; Neutrophils Absolute Auto 7.2 x10*3/uL (2.0-8.3); WBCANC 10.8 X10*3/uL
[2023-06-27 09:59] LABS: Lithium 0.63 mmol/L (0.60-1.20)
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
[2023-06-27 19:45] VITALS: BP 120/79; PULSE 86; RESP 18; TEMP 36.6; O2SAT 96
[2023-06-27] MEDS: traZODone HCL 50 MG TABLET PO (21:12)
[2023-06-28 09:02] VITALS: BP 131/79; PULSE 91; RESP 16; TEMP 36.7; O2SAT 99
[2023-06-28] MEDS: FLUoxetine HCl 20 MG CAPSULE 40 MG PO (09:03)
[2023-06-28] MEDS: Lithium Carbonate ER 300 MG TABLET.ER 600 MG PO ×2 (09:03→21:21)
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
[2023-06-28] MEDS: HaloperidoL 5 MG TABLET PO (17:10)
[2023-06-28 20:30] VITALS: BP 128/72; PULSE 93; RESP 16; TEMP 36.9; O2SAT 98
[2023-06-29 06:00] VITALS: BP 120/77; PULSE 93; RESP 16; TEMP 36.4; O2SAT 98
[2023-06-29] MEDS: FLUoxetine HCl 20 MG CAPSULE 40 MG PO (08:46)
[2023-06-29] MEDS: Lithium Carbonate ER 300 MG TABLET.ER 600 MG PO ×2 (08:46→20:47)
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
[2023-06-29 18:00] VITALS: BP 121/79; PULSE 97; RESP 18; TEMP 36.6; O2SAT 99
--- NOTE | 2023-06-29 21:37 | PC.NURSE ---
Boris is noted to be alert and oriented X's 4. he is pleasant and cooperative. he denies depression, auditory/visual hallucinations, and suicidal/homicidal ideation. he endorses anxiety 05/16 but declined medication other then his scheduled HS medications, states he is safe on the unit. no behavioral concerns, intermittently visible and social with his peers. monitor for safety, continue Plan of Care
[2023-06-30 07:00] VITALS: BMI 36.6
[2023-06-30 09:20] LABS: Lithium 0.49 mmol/L (0.60-1.20)
[2023-06-30 09:29] LABS: Anion Gap 11 (12-20); Blood Urea Nitrogen 10 mg/dL (9-16); Carbon Dioxide 25 mmol/L (22-29); Chloride 109 mmol/L (96-108); Creatinine Clr Calc Pharmacy 117.6; Estimated Glomerular Filt Rate > 60; Glucose Random 93 mg/dL (60-115); Potassium 3.9 mmol/L (3.3-5.1); Sodium 141 mmol/L (135-145)
--- NOTE | 2023-06-30 11:01 | PC.NURSE ---
notified, that PT is sleeping, per DR. Byrd ok to give meds later.
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
[2023-06-30] MEDS: Lithium Carbonate ER 300 MG TABLET.ER 600 MG PO (14:34)
[2023-06-30] MEDS: FLUoxetine HCl 20 MG CAPSULE 40 MG PO (14:34)
[2023-06-30 20:38] VITALS: BP 139/87; PULSE 98; RESP 18; TEMP 36.4; O2SAT 97
[2023-06-30] MEDS: traZODone HCL 50 MG TABLET PO (20:39)
[2023-06-30] MEDS: Lithium Carbonate ER 300 MG TABLET.ER PO (20:40)
[2023-06-30] MEDS: Lithium Carbonate ER 450 MG TABLET.ER PO (20:40)
[2023-07-01 09:05] VITALS: BP 100/55; PULSE 73; RESP 16; TEMP 36.8; O2SAT 96
[2023-07-01] MEDS: FLUoxetine HCl 20 MG CAPSULE 40 MG PO (09:12)
[2023-07-01] MEDS: Lithium Carbonate ER 300 MG TABLET.ER 600 MG PO (09:13)
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
[2023-07-01] MEDS: LORazepam 1 MG TABLET 2 MG PO (17:16)
[2023-07-01] MEDS: hydrOXYzine HCL 25 MG TABLET PO (17:17)
[2023-07-01] MEDS: HaloperidoL 5 MG TABLET PO (17:17)
[2023-07-01] MEDS: traZODone HCL 50 MG TABLET PO (20:28)
[2023-07-01] MEDS: Lithium Carbonate ER 450 MG TABLET.ER PO (20:31)
[2023-07-01] MEDS: Lithium Carbonate ER 300 MG TABLET.ER PO (20:32)
[2023-07-01 20:35] VITALS: BP 133/71; PULSE 108; RESP 16; TEMP 36.8; O2SAT 98
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
[2023-07-02] MEDS: FLUoxetine HCl 20 MG CAPSULE 40 MG PO (10:47)
[2023-07-02] MEDS: Lithium Carbonate ER 300 MG TABLET.ER 600 MG PO (10:47)
[2023-07-02 11:07] VITALS: BP 129/77; PULSE 103; RESP 17; TEMP 36.6; O2SAT 98
[2023-07-02 20:05] VITALS: BP 114/77; PULSE 100; RESP 18; TEMP 36.6; O2SAT 99
[2023-07-02] MEDS: Lithium Carbonate ER 450 MG TABLET.ER PO (20:25)
[2023-07-02] MEDS: OLANZapine 10 MG TABLET PO (20:26)
[2023-07-02] MEDS: Lithium Carbonate ER 300 MG TABLET.ER PO (20:26)
[2023-07-02] MEDS: traZODone HCL 50 MG TABLET PO (20:26)
[2023-07-03] MEDS: Lithium Carbonate ER 300 MG TABLET.ER 600 MG PO (10:00)
[2023-07-03] MEDS: FLUoxetine HCl 20 MG CAPSULE 40 MG PO (10:01)
[2023-07-03 10:05] VITALS: BP 125/86; PULSE 100; TEMP 37.2; O2SAT 98
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
[2023-07-03] MEDS: Lithium Carbonate ER 450 MG TABLET.ER PO (20:25)
[2023-07-03 20:29] VITALS: BP 132/85; PULSE 101; TEMP 36.9; O2SAT 97
[2023-07-03] MEDS: Lithium Carbonate ER 300 MG TABLET.ER PO (20:35)
[2023-07-04 08:00] VITALS: BP 118/78; PULSE 91; RESP 18; TEMP 37.1; O2SAT 98
[2023-07-04] MEDS: FLUoxetine HCl 20 MG CAPSULE 40 MG PO (08:20)
[2023-07-04] MEDS: Lithium Carbonate ER 300 MG TABLET.ER 600 MG PO (08:21)
[2023-07-04 08:42] LABS: Neut%MD 67.4 %; Neutrophils Absolute Auto 7.9 x10*3/uL (2.0-8.3); WBCANC 11.7 X10*3/uL
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
[2023-07-04 13:48] LABS: Lithium 0.75 mmol/L (0.60-1.20)
[2023-07-04 13:54] LABS: Anion Gap 13 (12-20); Blood Urea Nitrogen 9 mg/dL (9-16); Calcium 9.8 mg/dL (8.4-10.2); Carbon Dioxide 28 mmol/L (22-29); Chloride 106 mmol/L (96-108); Creatinine Clr Calc Pharmacy 132.1; Estimated Glomerular Filt Rate > 60; Glucose Random 127 mg/dL (60-115); Potassium 3.9 mmol/L (3.3-5.1); Sodium 143 mmol/L (135-145)
[2023-07-05 05:33] LABS: Clozapine (Clozaril) 609 mcg/L; Norclozapine 245 mcg/L (25-400)
== END 2023-07-04 15:05 | disposition home or self-care (01) | DRG 750 ==
LOC: HO.ED 06-16 09:49 → HO.PADLT16 06-16 15:59
PROVIDERS: Physician Assistant; Psychiatry & Neurology Psychiatry; Admitting Provider Psychiatry & Neurology Psychiatry; Emergency Provider Emergency Medicine; Visit Provider Psychiatry & Neurology Psychiatry
DX: F20.9 Schizophrenia, unspecified (principal); E66.9 Obesity, unspecified; F17.210 Nicotine dependence, cigarettes, uncomplicated; E78.00 Pure hypercholesterolemia, unspecified; Z68.36 Body mass index [BMI] 36.0-36.9, adult; Z20.822 Contact with and (suspected) exposure to COVID-19; Z78.1 Physical restraint status; Z71.6 Tobacco abuse counseling; Z79.899 Other long term (current) drug therapy
CPT/HCPCS: 36415; 80048; 80053; 80143; 80159; 80178; 80179; 80307; 81001; 85025; 85048; 86704; 86706; 86803; 87340; 87389; 87635; 93005; 99285; J1200; J2060; J2250; S9485

== ENCOUNTER → 2023-06-14 00:23 | Outpatient (BNV) | payer OTHER, SELFPAY | PROVIDERS: Emergency Provider Emergency Medicine; Visit Provider Social Worker | DX: F25.9 Schizoaffective disorder, unspecified (principal); R45.1 Restlessness and agitation; E78.00 Pure hypercholesterolemia, unspecified; F20.9 Schizophrenia, unspecified; E66.9 Obesity, unspecified | CPT/HCPCS: 90792; 99231; 99232; 99239; 99285 ==

== ENCOUNTER → 2023-06-15 15:08 | Outpatient (BNV) | payer OTHER, SELFPAY | PROVIDERS: Admitting Provider Psychiatry & Neurology Psychiatry; Emergency Provider Emergency Medicine; Visit Provider Internal Medicine Cardiovascular Disease | DX: R45.1 Restlessness and agitation (principal); F25.9 Schizoaffective disorder, unspecified | CPT/HCPCS: 93010 ==

== ENCOUNTER → 2023-06-16 15:46 | Outpatient (BNV) | payer OTHER, SELFPAY | PROVIDERS: Admitting Provider Psychiatry & Neurology Psychiatry; Emergency Provider Emergency Medicine; Visit Provider Surgery | DX: S09.93XA Unspecified injury of face, initial encounter (principal); F25.9 Schizoaffective disorder, unspecified; R45.1 Restlessness and agitation; E78.00 Pure hypercholesterolemia, unspecified; E66.9 Obesity, unspecified | CPT/HCPCS: 99221 ==

== ENCOUNTER → 2023-06-16 15:46 | Outpatient (BNV) | payer OTHER, SELFPAY | PROVIDERS: Admitting Provider Psychiatry & Neurology Psychiatry; Emergency Provider Emergency Medicine; Visit Provider Psychiatry & Neurology Psychiatry | DX: F20.89 Other schizophrenia (principal) | CPT/HCPCS: 99231 ==

== ENCOUNTER 2023-07-18 15:54 | Outpatient (AMB) | payer OTHER, SELFPAY ==
[2023-07-18 16:04] VITALS: BP 122/68; PULSE 94; O2SAT 98; BMI 36.0
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
== END 2023-07-18 17:31 | disposition home or self-care (01) ==
PROVIDERS: Visit Provider Internal Medicine
DX: Z00.00 Encounter for general adult medical examination without abnormal findings (principal); F25.9 Schizoaffective disorder, unspecified; E66.9 Obesity, unspecified; Z68.36 Body mass index [BMI] 36.0-36.9, adult; E78.00 Pure hypercholesterolemia, unspecified
CPT/HCPCS: 99395

== ENCOUNTER 2023-08-16 00:05 | Emergency (ER) | payer OTHER, SELFPAY ==
[2023-08-16 00:24] VITALS: BMI 35.4
[2023-08-16 00:37] VITALS: BP 119/86; PULSE 110; RESP 19; TEMP 36.8; O2SAT 96
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
--- NOTE | 2023-08-16 03:30 | PC.NURSE ---
Addendum entered by Orlando Delgado RN 08/16/23 03:45: Entered in error under incorrect user. This RN assumed care at initial time of this note as follows: Assumed care of pt. Pt lying on stretcher, no acute medical or behavioral concerns at this time. Eyes closed, respirations even and unlabored. Continuing safety monitoring and plan of care. Original Note: Assumed care of pt. Pt lying on stretcher, no acute medical or behavioral concerns at this time. Eyes closed, respirations even and unlabored. Continuing safety monitoring and plan of care.
--- NOTE | 2023-08-16 06:01 | PC.NURSE ---
Pt lying on stretcher, no acute medical or behavioral concerns at this time. Eyes closed, respirations even and unlabored. Continuing safety monitoring and plan of care.
--- NOTE | 2023-08-16 07:19 | PC.NURSE ---
patient appears to remain asleep at present respirations are even and unlabored patient appears in no distress.
--- NOTE | 2023-08-16 10:07 | PC.NURSE ---
reviewed med rec and last taken meds with mother, mom stated she had missed last appointment with psychiatry
[2023-08-16 14:00] VITALS: RESP 16
--- NOTE | 2023-08-16 14:36 | MHC.CARE ---
Patient assessed by CARE team, patient requesting d/c, feeling more calm, future focused to go to therapy tomorrow. Patient is denying SI/ HI and is organized and does not appear to respond to internal stimuli. Denies AH, mood better, affect bright during discussion. 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 Discussed case w Dr Wagner at 1pm, who is aware of plan and in agreement.
--- NOTE | 2023-08-16 18:38 | PHA.MEDREC ---
Pharmacy Consult ? Medication Reconciliation Pharmacy has reviewed the medication reconciliation completed by Merari.
== END 2023-08-16 20:48 | disposition home or self-care (01) ==
PROVIDERS: Emergency Provider Internal Medicine
DX: R45.851 Suicidal ideations (principal); R45.6 Violent behavior; F25.9 Schizoaffective disorder, unspecified; F43.20 Adjustment disorder, unspecified; F17.210 Nicotine dependence, cigarettes, uncomplicated; Z71.6 Tobacco abuse counseling; Z79.899 Other long term (current) drug therapy
CPT/HCPCS: 36415; 70450; 72125; 80053; 80143; 80179; 80307; 81003; 85025; 99284; S9485

== ENCOUNTER 2023-10-04 22:19 | Emergency (ER) | payer OTHER, SELFPAY ==
[2023-10-04 22:25] VITALS: BP 124/80; PULSE 101; RESP 18; TEMP 36.4; O2SAT 95
--- NOTE | 2023-10-04 22:27 | PC.NURSE ---
belongings in locker 11
[2023-10-04 22:30] VITALS: BP 175/90; PULSE 99; O2SAT 100; BMI 35.4
--- NOTE | 2023-10-04 22:52 | MHC.EDTECH ---
Patient changed over in clothing
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
[2023-10-05 00:33] VITALS: BP 123/80; PULSE 88; RESP 16; O2SAT 98
--- NOTE | 2023-10-05 00:45 | PC.NURSE ---
this rn, security, and dr sands at bedside for ange. pt drowsy at this time calm and cooperative for duration of procedure.
[2023-10-05 00:47] LABS: Basophils Absolute Auto 0.1 X10*3/uL (0.0-0.2); Basophils Percent Auto 0.4 % (0-2); Eosinophils Absolute Auto 0.3 X10*3/uL (0.0-0.4); Eosinophils Percent Auto 1.8 % (0-4); Hematocrit 44.1 % (42.0-52.0); Hemoglobin 15.1 g/dl (14.0-18.0); Imm Gran Abs Auto 0.09 X10*3/uL (0.00-0.03); Imm Gran Pct Auto 0.6 % (0.0-0.4); Lymphocytes Absolute Auto 2.5 X10*3/uL (1.2-4.9); Lymphocytes Percent Auto 17.1 % (20-40); MANUAL DIFF FLAG NO; Mean Corpuscular HGB Conc 34.2 g/dl (31.0-36.0); Mean Corpuscular Hemoglobin 31.4 pg (27.0-33.0); Mean Corpuscular Volume 91.7 fL (80.0-98.0); Mean Platelet Volume 10.4 fL (9.4-12.4); Neutrophils Absolute Auto 10.8 x10*3/uL (2.0-8.3); Neutrophils Percent Auto 73.1 % (45-73); Platelet Count 213 X10*3/uL (160-400); Red Blood Count 4.81 X10*6/uL (4.60-5.80); Red Cell Distribution Width 13.6 % (11.0-16.0); White Blood Count 14.8 X10*3/uL (4.8-10.8)
[2023-10-05 01:15] LABS: Alanine Aminotransferase 22 U/L (0-40); Albumin Level 4.4 g/dL (3.5-5.0); Alkaline Phosphatase 82 U/L (39-117); Anion Gap 13 (12-20); Aspartate Amino Transferase 16 U/L (5-37); Bilirubin Direct 0.1 mg/dL (0.0-0.5); Bilirubin Total 0.3 mg/dL (0.0-1.0); Blood Urea Nitrogen 11 mg/dL (9-16); Calcium 9.1 mg/dL (8.4-10.2); Carbon Dioxide 22 mmol/L (22-29); Chloride 108 mmol/L (96-108); Creatinine Clr Calc Pharmacy 160.6; Estimated Glomerular Filt Rate > 60; Ethanol < 10 mg/dL; Glucose Random 105 mg/dL (60-115); Potassium 3.6 mmol/L (3.3-5.1); Sodium 139 mmol/L (135-145); Total Protein 6.8 g/dL (6.5-8.0)
[2023-10-05] MEDS: Lidocaine HCl 1 % 20 ML VIAL 10 ML INFILTRATI (01:40)
[2023-10-05 03:17] VITALS: BP 122/80; PULSE 89; RESP 16; O2SAT 97
--- NOTE | 2023-10-05 07:43 | PC.NURSE ---
assumed care of pt at 0700. pt sleeping on stretcher in no apparent distress. rr even/unlabored. 1:1 sitter at bedside. call fontaine within pt reach. plan of care ongoing.
--- NOTE | 2023-10-05 08:17 | PC.NURSE ---
pt mom called to check in on pt. she also stated that it is very important that the pt receives his psych medications while he is here. she gave a list to t/w. will perform med rec. provider jaun ramos.
--- NOTE | 2023-10-05 10:13 | PHA.MEDREC ---
Pharmacy Consult ? Medication Reconciliation Pharmacy has completed the medication reconciliation.Patient knew all medications. Last took clozapine last night
[2023-10-05 10:20] LABS: Lithium 0.39 mmol/L (0.60-1.20)
[2023-10-05] MEDS: FLUoxetine HCl 20 MG CAPSULE 40 MG PO (11:14)
[2023-10-05] MEDS: Lithium Carbonate ER 300 MG TABLET.ER 600 MG PO (11:14)
[2023-10-05 11:27] VITALS: BP 133/95; PULSE 103; RESP 16; TEMP 36.3; O2SAT 97
--- NOTE | 2023-10-05 11:41 | PC.NURSE ---
pt medicated per mar with morning meds. delay in administration due to pharmacy verification and critical pt in next door room. pt tolerated medications well. technical engineer at bedside, conversation appears beneficial.
--- NOTE | 2023-10-05 15:20 | MHC.CARE ---
RAD Team has completed a PHP referral for this individual and will follow up tomorrow 10/06/23 to confirm receipt.
== END 2023-10-05 11:46 | disposition home or self-care (01) ==
PROVIDERS: Emergency Medicine; Emergency Provider Emergency Medicine
DX: R45.6 Violent behavior (principal); S01.01XA Laceration without foreign body of scalp, initial encounter; X83.8XXA Intentional self-harm by other specified means, initial encounter; F20.9 Schizophrenia, unspecified; F17.210 Nicotine dependence, cigarettes, uncomplicated; F12.90 Cannabis use, unspecified, uncomplicated; Y93.9 Activity, unspecified; Y92.039 Unspecified place in apartment as the place of occurrence of the external cause; Y99.9 Unspecified external cause status; Z79.899 Other long term (current) drug therapy
CPT/HCPCS: 12004; 36415; 80048; 80076; 80178; 80307; 85025; 99284; 99285; S9485

== ENCOUNTER 2023-10-11 10:27 | Inpatient (IN) | payer OTHER, SELFPAY ==
[2023-10-11 10:40] VITALS: BP 138/82; PULSE 105; PULSE 97; RESP 18; TEMP 36.8; O2SAT 97; BMI 35.0
--- NOTE | 2023-10-11 11:23 | ED.PSYCH ---
HPI - Psych General Chief Complaint: Psychiatric Symptoms Stated Complaint: BEHAVIORAL OUTBURSTS,-SEC 12 Time Seen by Provider: 10/11/23 11:00 Source: patient, EMS, RN notes reviewed and old records reviewed Mode of arrival: EMS History of Present Illness HPI Narrative: 32-year-old male with a past medical history of schizophrenia presenting to the ED via EMS complaining of increased aggressive behavior and feeling unwell. Patient admits to SI and HI without plan or follow through. Reports compliance with home medications. Denies illicit substance use or EtOH. Patient was seen and treated in the ED on 10/05 for similar symptoms, had 9 ange placed to scalp at that time. Reports laceration improving without pain, headache, drainage, fever/chest, abdominal pain, CP/SOB. Related Data Home Medications Medication Instructions Recorded Confirmed clozapine 100 mg tablet 400 mg PO BEDTIME 08/11/22 10/11/23 fluoxetine 40 mg capsule 40 mg PO DAILY 08/11/22 10/11/23 lithium carbonate 300 mg 600 mg PO DAILY 08/16/23 10/11/23 tablet,extended release lorazepam 1 mg tablet 2 mg PO BID PRN agitation, anxiety 10/11/23 10/11/23 Previous Rx's Medication Instructions Recorded lithium carbonate 450 mg 450 mg PO BEDTIME 30 days #30 tabs 07/18/23 tablet,extended release Allergies Allergy/AdvReac Type Severity Reaction Status Date / Time NSAIDS (Non-Steroidal AdvReac Gastrointestinal Verified 08/16/23 10:38 Anti-Inflamma Upset Review of Systems Review of Systems: Constitutional: No Fever, No Chills, No Fatigue, No Malaise ENT/Mouth: No Ear Pain, No Nasal Congestion, No sore throat, No Rhinorrhea, No Swallowing Difficulty Eyes: No Eye Pain, No Swelling, No Redness, No Vision Changes Cardiovascular: No Chest Pain, No SOB, No Edema, No Palpitations Respiratory: No Cough, No Sputum, No Dyspnea Gastrointestinal: No Nausea, No Vomiting, No Diarrhea, No Constipation, No Abdominal pain Musculoskeletal: No joint pain, No Myalgias, No Joint Swelling Skin: No Skin Lesions, No rash Neuro: No Weakness, No Headache Psych: No Anxiety/Panic, No Depression, No SI/HI/AH/VH, + Social Issues, +agression Yes all other systems are reviewed and are negative Constitutional: Constitutional: Reports as per HPI [facility] Past Medical History Attestation statement: The following information was validated with the patient. Source: old records reviewed Medical History Schizophrenia Family History Family History Mother No problems noted. Father No problems noted. Brother No problems noted. Maternal Grandmother Breast cancer Social History Social History Household Members: Family Housing: Apartment Do you presently have visiting nurse or other home services: No Alcohol intake: never Patient Tobacco Use Status: Current everyday Tobacco user Tobacco use type: Cigarette Cigarette Packs Per Day: 1 Cigarettes Per Day: 20.0 Years Smoked: 2 cigarettes a day (07/2023) Second Hand Smoke Exposure: No Substance Use Type: Marijuana Advance Directives: No Advance Directives Information Provided: Yes Healthcare Proxy: No Guardian: No service: No Current occupational status: unemployed Sexual orientation: Don't Know Cognitive needs: No Hearing needs: No Vision needs: Yes Physical Exam Vital Signs: Vital Signs: Last Vital Signs Temp 98.7 F 10/12/23 05:51 Pulse 98 10/12/23 05:51 Resp 17 10/12/23 05:51 BP 113/86 10/12/23 05:51 Pulse Ox 99 10/12/23 05:51 O2 Del Method Room Air 10/12/23 05:51 BMI result Body Mass Index 35.0 Const: General: cooperative, healthy appearing and no acute distress Orientation/consciousness: patient oriented x3 Limitations: no limitations HEENT: Head: Yes normal to inspection and Yes atraumatic Ears: hearing grossly normal bilaterally General nose exam: Normal external nose present Face and sinus: Yes normal facial exam Eyes: General: appearance normal, both eyes and all related structures EOM: EOMs intact bilaterally Neck: Neck: Yes normal visual inspection and Yes no meningeal signs Resp: Effort & Inspection: normal respiratory effort and no respiratory distress Auscultation: clear to auscultation bilaterally Cardio: Rate: regular rate Heart sounds: S1 normal heart sound present and S2 normal heart sound present GI: Inspection: Yes normal to inspection Palpation (GI): Soft to palpation, nontender, no guarding and not rigid Skin: Rashes: no rashes Wounds: no wounds Neuro: General: patient oriented x3, tone normal, moves all extremities, no meningeal signs and CN's II-XI intact bilaterally Cranial nerves: Yes CN's II-XII intact bilaterally Gait exam (Neuro): Normal gait present Extrem: General: Yes normal to inspection Psych: Attitude: cooperative Thought content: Suicidality present and Homicidality present Course Course Course Narrative: -1430--labs still pending however patient will be Inpatient BS -labs unremarkable. 1630--ED care transferred to [facility] pending psych admission. Tox screen pending Reevaluation(s) Reevaluation #1: Patient is noted to be COVID-19 positive. Serum labs are otherwise unremarkable. Urinalysis is negative no sign of infection. Toxicology positive for marijuana. Placed in position observation so that care team evaluation can ensue. Conscious alert and oriented x3. Calm and cooperative. No distress. Time: 20:08 Reevaluation #2: Physician observation continued: I assumed care of this patient from my colleague, Dr. Dipti Mejia at 07:00 hours. Patient has been in the emergency department for approximately 21 hours. There were no reported incidents on the patient by the overnight staff. Patient's laboratory evaluation revealed a urine drug screen positive for marijuana. Patient was also positive for COVID-19. Patient has been evaluated by the care team and is in in-patient bed search Patient will remain in the emergency department Behavioral Health Unit until disposition can be determined or until patient's symptoms improve over time. Time: 07:19 Medications Administered Generic Name Dose Route Start Last Admin Trade Name Gurdeepq PRN Reason Stop Dose Admin Clozapine 400 mg 10/11/23 21:00 10/11/23 21:33 Clozapine 100 Mg Tablet PO 400 mg BEDTIME NATHALY Administration Barber Carbonate 450 mg 10/11/23 21:00 10/11/23 20:58 Barber Carbonate Er 450 Mg Tablet.Er PO 450 mg BEDTIME NATHALY Administration Lorazepam 2 mg 10/11/23 14:29 10/11/23 20:58 Lorazepam 1 Mg Tablet PO 2 mg BID PRN Administration agitation, anxiety Medical Decision Making Medical Decision Making [facility] Narrative: 32-year-old male with a past medical history of schizophrenia presenting to the ED via EMS complaining of increased aggressive behavior and feeling unwell. Patient admits to SI and IN without plan or follow through. On exam mildly tachycardic, NAD, reports SI/HI without plan. Concern for psychiatric illness. Rule out organic causes. Plan: Labs, tox screen, CARE team consult Please refer to course for remaining clinical decision making, interpretation of labs/imaging results, and discussions with consultants and/or family members. Differential Diagnosis Differential Diagnoses: The differential diagnosis associated with the presentation includes As above Admission/Observation Consideration of admission/observation: Escalation of care including admission/observation considered Consult Healthcare Provider Management of the patient was discussed with: Behavioral Health Provider Lab Data [facility] Lab Attestation statement: I reviewed the patient's lab results. 10/11/23 14:44 10/11/23 14:44 Labs: Lab Results 10/11/23 10/11/23 10/11/23 Range/Units 14:44 16:18 16:35 WBC 8.8 (4.8-10.8) X10*3/uL RBC 4.80 (4.60-5.80) X10*6/uL Hgb 14.8 (14.0-18.0) g/dl Hct 43.7 (42.0-52.0) % MCV 91.0 (80.0-98.0) fL MCH 30.8 (27.0-33.0) pg MCHC 33.9 (31.0-36.0) g/dl RDW 13.2 (11.0-16.0) % Plt Count 198 (160-400) X10*3/uL MPV 10.2 (9.4-12.4) fL Immature Gran % (Auto) 0.6 H (0.0-0.4) % Neut % (Auto) 80.1 H (45-73) % Lymph % (Auto) 13.7 L (20-40) % [place] % (Auto) 4.8 (2-11) % Eos % (Auto) 0.6 (0-4) % Baso % (Auto) 0.2 (0-2) % Lymph # (Auto) 1.2 (1.2-4.9) X10*3/uL [place] # (Auto) 0.4 (0.1-1.2) X10*3/uL Eos # (Auto) 0.1 (0.0-0.4) X10*3/uL Baso # (Auto) 0.0 (0.0-0.2) X10*3/uL Abs Immat Gran (auto) 0.05 H (0.00-0.03) X10*3/uL Absolute Neuts (auto) 7.1 (2.0-8.3) x10*3/uL Absolute Nucleated RBC 0.000 (0.0-0.012) X10*3/uL Nucleated RBC % (auto) 0.0 (0.0-0.2) /100WBC Sodium 141 (135-145) mmol/L Potassium 4.0 (3.3-5.1) mmol/L Chloride 108 (96-108) mmol/L Carbon Dioxide 25 (22-29) mmol/L Anion Gap 12 (12-20) BUN 9 (9-16) mg/dL Creatinine 0.86 (0.5-1.4) mg/dL Estim Creat Clear Calc 145.7 Estimated GFR > 60 Random Glucose 115 (60-115) mg/dL Calcium 9.4 (8.4-10.2) mg/dL Total Bilirubin 0.4 (0.0-1.0) mg/dL AST 14 (5-37) U/L ALT 25 (0-40) U/L Alkaline Phosphatase 82 (39-117) U/L Total Protein 6.8 (6.5-8.0) g/dL Albumin 4.3 (3.5-5.0) g/dL Urine Color Yellow Urine Appearance Clear Urine pH 8.5 (5.0-9.0) Ur Specific [place] 1.015 (1.005-1.025) Urine Protein Negative (Neg-Trace) mg/dL Urine Glucose (UA) Negative (Negative) mg/dL Urine Ketones Negative (Negative) mg/dL Urine Blood Negative (Negative) Urine Nitrite Negative (Negative) Ur Leukocyte Esterase Negative (Negative) Urine RBC 0-2 (0-2) /HPF Urine WBC 0-5 (0-5) /HPF Ur Squamous Epith Cells 0-2 (0-2) /HPF Urine Bacteria None Seen (None Seen) Hyaline Casts 0-2 (0-2) /LPF Salicylates < 5.0 L (15-30) mg/dL Urine Opiates Screen Not Detected (Not Detect) Urine Fentanyl Screen Not Detected (Not Detect) Acetaminophen < 3 (<30) mcg/mL Ur Barbiturates Screen Not Detected (Not Detect) Ur Phencyclidine Scrn Not Detected (Not Detect) Ur Amphetamines Screen Not Detected (Not Detect) U Benzodiazepines Scrn Not Detected (Not Detect) Barber 0.70 (0.60-1.20) mmol/L Urine Cocaine Screen Not Detected (Not Detect) U Marijuana (THC) Screen POSITIVE H (Not Detect) Ethyl Alcohol < 10 mg/dL COVID-19 (RADHA) Positive A (Negative) COVID-19 Clin Com See Note External Record Review External record reviewed: Inpatient record, Office record, Outpatient record, Prior outpatient labs, Prior outpatient radiology, Primary care record and Outside ED record Tests considered The following testing was considered but not selected: As above Chronic Conditions Patient?s care impacted by: Other Social Determinants Patient?s care significantly limited by Social Determinants of Health including: Unemployment and Other Social Determinant of Health Discharge Plan Discharge Clinical Impression: Chronic schizophrenia Patient Disposition: Admitted As Inpatient Interventions: Callahan-Suicide Risk Severity Scale Last Done: 10/11/23 15:27
--- NOTE | 2023-10-11 14:29 | ECG_ITS ---
Test Reason : CHECK PROLONG OT Blood Pressure : / mmHG Vent. Rate : 085 BPM Atrial Rate : 085 BPM P-R Int : 128 ms QRS Dur : 090 ms QT Int : 370 ms P-R-T Axes : 000 047 044 degrees QTc Int : 440 ms Artifact in tracing Normal sinus rhythm Normal ECG When compared with ECG of 15-JUN-2023 15:08, No significant change was found Referred By: Laurita Spencer Electronically Signed By:MEME ISRAEL
[2023-10-11 14:49] LABS: MANUAL DIFF FLAG NO
[2023-10-11 14:52] LABS: Basophils Percent Auto 0.2 % (0-2); Eosinophils Absolute Auto 0.1 X10*3/uL (0.0-0.4); Eosinophils Percent Auto 0.6 % (0-4); Hematocrit 43.7 % (42.0-52.0); Hemoglobin 14.8 g/dl (14.0-18.0); Imm Gran Abs Auto 0.05 X10*3/uL (0.00-0.03); Imm Gran Pct Auto 0.6 % (0.0-0.4); Lymphocytes Absolute Auto 1.2 X10*3/uL (1.2-4.9); Lymphocytes Percent Auto 13.7 % (20-40); Mean Corpuscular HGB Conc 33.9 g/dl (31.0-36.0); Mean Corpuscular Hemoglobin 30.8 pg (27.0-33.0); Mean Platelet Volume 10.2 fL (9.4-12.4); Monocytes Absolute Auto 0.4 X10*3/uL (0.1-1.2); Monocytes Percent Auto 4.8 % (2-11); Neutrophils Absolute Auto 7.1 x10*3/uL (2.0-8.3); Neutrophils Percent Auto 80.1 % (45-73); Platelet Count 198 X10*3/uL (160-400); Red Cell Distribution Width 13.2 % (11.0-16.0); White Blood Count 8.8 X10*3/uL (4.8-10.8)
--- NOTE | 2023-10-11 15:09 | PHA.MEDREC ---
Pharmacy Consult ? Medication Reconciliation Pharmacy has reviewed the medication reconciliation completed by Zohreh. Per patient's mother last clozaril dose was last night. Elena Preciado, PharmD
[2023-10-11 15:11] LABS: Acetaminophen LAB < 3 mcg/mL (<30); Alanine Aminotransferase 25 U/L (0-40); Albumin Level 4.3 g/dL (3.5-5.0); Alkaline Phosphatase 82 U/L (39-117); Anion Gap 12 (12-20); Aspartate Amino Transferase 14 U/L (5-37); Bilirubin Total 0.4 mg/dL (0.0-1.0); Blood Urea Nitrogen 9 mg/dL (9-16); Calcium 9.4 mg/dL (8.4-10.2); Carbon Dioxide 25 mmol/L (22-29); Chloride 108 mmol/L (96-108); Creatinine Clr Calc Pharmacy 145.7; Estimated Glomerular Filt Rate > 60; Ethanol < 10 mg/dL; Glucose Random 115 mg/dL (60-115); Salicylate < 5.0 mg/dL (15-30); Sodium 141 mmol/L (135-145); Total Protein 6.8 g/dL (6.5-8.0)
[2023-10-11 15:27] VITALS: RESP 16
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
[2023-10-11 16:31] LABS: Amphetamine Screen Urine Not Detected (Not Detect); Barbiturates, Urine Not Detected (Not Detect); Benzodiazepines Screen Urine Not Detected (Not Detect); Cannabinoid Screen Urine POSITIVE (Not Detect); Cocaine Screen Urine Not Detected (Not Detect); Fentanyl, urine Not Detected (Not Detect); Opiate Screen Urine Not Detected (Not Detect); Phencyclidine Screen Urine Not Detected (Not Detect)
[2023-10-11 16:39] LABS: Appearance Urine Clear; Color Urine Yellow; Glucose Urine UA Negative (Negative); Leukocyte Esterase Urine Negative (Negative); Nitrite Urine Negative (Negative); PH 8.5 (5.0-9.0); Specific Gravity - Urine 1.015 (1.005-1.025); Urine Blood Negative (Negative); Urine Ketones Negative (Negative); Urine Protein Negative (Neg-Trace)
[2023-10-11 16:58] LABS: Bacteria Urine None Seen (None Seen); Hyaline Casts Urine 0-2 /LPF (0-2); RBC Urine 0-2 /HPF (0-2); Squamous Epithelial Cell Urine 0-2 /HPF (0-2); WBC Urine 0-5 /HPF (0-5)
[2023-10-11 17:03] LABS: COVID-19 Test Positive (Negative); IDNOW Serial# 6674DD1D
--- NOTE | 2023-10-11 17:56 | PC.NURSE ---
Boris + Rayo. Precautions in place. Denies symptoms but mom reports she tested positive yesterday. Boris trotter when approached, requested food which was provided.
[2023-10-11] MEDS: LORazepam 1 MG TABLET 2 MG PO (20:58)
[2023-10-11] MEDS: Lithium Carbonate ER 450 MG TABLET.ER PO (20:58)
[2023-10-11] MEDS: cloZAPine 100 MG TABLET 400 MG PO (21:33)
--- NOTE | 2023-10-11 23:17 | PC.NURSE ---
Pt remains lying on stretcher, eyes closed, respirations even and unlabored, no acute distress. Continuing plan of care.
--- NOTE | 2023-10-12 03:49 | PC.NURSE ---
Pt remains lying on stretcher, eyes closed, respirations even and unlabored, no acute distress.
[2023-10-12 05:51] VITALS: BP 113/86; PULSE 98; RESP 17; TEMP 37.1; O2SAT 99
--- NOTE | 2023-10-12 08:08 | MHC.CARE ---
Statewide bedsearch conducted, unfortunately no beds are available due to pt being covid+. RAD Team to continue bedsearch if deemed necessary
[2023-10-12] MEDS: Lithium Carbonate ER 300 MG TABLET.ER 600 MG PO (10:21)
[2023-10-12] MEDS: FLUoxetine HCl 20 MG CAPSULE 40 MG PO (10:21)
--- NOTE | 2023-10-12 10:28 | PC.NURSE ---
care team met with patient, continues to be bedsearch. awake, eating breakfast. medicated per the MAR.
--- NOTE | 2023-10-12 14:23 | PC.NURSE ---
continues to rest quietly in common area, watching tv at this time. no signs/symptoms of distress
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
[2023-10-12 20:39] VITALS: BP 127/84; PULSE 94; RESP 18; TEMP 36.9; O2SAT 99
[2023-10-12 20:57] VITALS: BP 119/82; PULSE 91; RESP 20; TEMP 37; O2SAT 100
[2023-10-12] MEDS: Lithium Carbonate ER 450 MG TABLET.ER PO (21:23)
[2023-10-12] MEDS: cloZAPine 100 MG TABLET 400 MG PO (21:23)
--- NOTE | 2023-10-12 21:36 | PC.NURSE ---
Patient is alert and oriented x5, VSS. Patient denies pain discomfort. Patient medicated per MAR. He denies SI/HI, calm and cooperative.
--- NOTE | 2023-10-13 06:06 | PC.NURSE ---
Patient remains resting in bed, eyes closed, respirations even and unlabored, no acute distress. Patient denies SI/HI. Plan of care ongoing.
--- NOTE | 2023-10-13 07:31 | PC.NURSE ---
PT SLEEPING SOUNDLY. AWAITING INPT.
[2023-10-13] MEDS: Lithium Carbonate ER 300 MG TABLET.ER 600 MG PO (08:46)
[2023-10-13] MEDS: FLUoxetine HCl 20 MG CAPSULE 40 MG PO (08:46)
[2023-10-13 09:03] LABS: COVID-19 Test Negative (Negative); IDNOW Serial# BCCEAD1C
--- NOTE | 2023-10-13 09:30 | PC.NURSE ---
calm, coop, no distress, ate breakfast. covid precautions.
[2023-10-13 11:30] VITALS: BP 120/68; PULSE 98; RESP 18; TEMP 37; O2SAT 100
--- NOTE | 2023-10-13 13:15 | PC.NURSE ---
given lunch, tolerated well. no distress
[2023-10-13 14:00] VITALS: RESP 16
--- NOTE | 2023-10-13 14:34 | PC.NURSE ---
provider md beckman at bedside taking out ange in head. no distress. tolerating well. talks clearly. no bleeding overtly noted.
[2023-10-13] MEDS: Bacitracin Oint 14 GM TUBE 1 APPL TOPICAL (14:54)
--- NOTE | 2023-10-13 15:14 | PC.NURSE ---
pt aox4. calm, coop. no distress. bacitracin applied at bedside. c/d/i dressing per md. no bleeding. wheeled up by security/brittanie rn w belongings and chart. rr 18
[2023-10-13 16:01] VITALS: BP 132/83; PULSE 98; RESP 20; TEMP 36.5; O2SAT 98
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
[2023-10-13 20:02] VITALS: BP 128/88; PULSE 96; RESP 18; TEMP 36.5; O2SAT 98
[2023-10-13] MEDS: Lithium Carbonate ER 450 MG TABLET.ER PO (21:53)
[2023-10-13] MEDS: cloZAPine 100 MG TABLET 400 MG PO (21:53)
[2023-10-13] MEDS: LORazepam 1 MG TABLET 2 MG PO (21:54)
[2023-10-14 08:29] VITALS: BP 119/71; PULSE 100; RESP 18; TEMP 36.6; O2SAT 97
[2023-10-14] MEDS: FLUoxetine HCl 20 MG CAPSULE 40 MG PO (08:56)
[2023-10-14] MEDS: Lithium Carbonate ER 300 MG TABLET.ER 600 MG PO (08:56)
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
[2023-10-14 20:07] VITALS: BP 132/77; PULSE 92; RESP 18; TEMP 36.7; O2SAT 100
[2023-10-14] MEDS: LORazepam 1 MG TABLET 2 MG PO (20:51)
[2023-10-14] MEDS: Lithium Carbonate ER 450 MG TABLET.ER PO (20:51)
[2023-10-14] MEDS: cloZAPine 100 MG TABLET 400 MG PO (20:51)
[2023-10-14 20:59] LABS: Lithium 0.43 mmol/L (0.60-1.20)
[2023-10-15 07:00] VITALS: BP 123/78; PULSE 99; RESP 18; TEMP 36.7; O2SAT 97
[2023-10-15] MEDS: FLUoxetine HCl 20 MG CAPSULE 40 MG PO (09:21)
[2023-10-15] MEDS: Lithium Carbonate ER 300 MG TABLET.ER 600 MG PO (09:22)
--- NOTE | 2023-10-15 13:10 | HO.PSYCHPN ---
Subjective Subjective Date of Service: 10/15/23 Reason For Visit: Psychosis Subjective Notes: Conditional Voluntary Interim History: Patient was seen and discussed in rounds today. Records and plans were reviewed. He has been stable, mostly isolative and withdrawn. Denies feeling depressed. Denies SI. No aggressive behaviors. Denies any side effects. His lithium level was slightly decreased from 0.7-0.43 on the same dose. No changes were made today Review of Systems Review of Systems Yes all other systems are reviewed and are negative Mental Status Exam Mental Status Exam Narrative: In today's visit he is alert, oriented and pleasant. Soft-spoken speech. Little eye contact. Affect is constricted. No acute signs of psychosis. No delusions. No SI. Cognitively intact. Judgment is intact Diagnostics Vital Signs (24Hr): Vital Signs - 24 hr 10/14/23 20:07 10/15/23 07:00 Temperature 98.0 F 98.0 F Pulse Rate 92 99 Respiratory Rate 18 18 Blood Pressure 132/77 123/78 Pulse Oximetry 100 97 Oxygen Delivery Method Room Air Room Air BMI result Body Mass Index 35.0 Labs 10/11/23 14:44 10/11/23 14:44 Labs: Laboratory Results - last 48 hr 10/14/23 20:38 [place] 0.43 L Medications Medications Current Medications Acetaminophen (Acetaminophen 325 Mg Tablet) 650 mg PO Q6H PRN PRN Reason: Headache/Pain Mild Scale (1-3) Al Hydroxide/Mg Hydroxide (Magnesium Hydrox/Alum Hydrox 30 Ml Oral.Susp) 30 ml PO Q6H PRN PRN Reason: Heartburn/Nausea Clozapine (Clozapine 100 Mg Tablet) 400 mg PO BEDTIME [facility] Last Admin: 10/14/23 20:51 Dose: 400 mg Fluoxetine HCl (Fluoxetine Hcl 20 Mg Capsule) 40 mg PO DAILY [facility] Last Admin: 10/15/23 09:21 Dose: 40 mg Hydroxyzine HCl (Hydroxyzine Hcl 25 Mg Tablet) 25 mg PO Q6H PRN PRN Reason: Anxiety [place] Carbonate ([place] Carbonate Er 300 Mg Tablet.Er) 600 mg PO DAILY [facility] Last Admin: 10/15/23 09:22 Dose: 600 mg [place] Carbonate ([place] Carbonate Er 450 Mg Tablet.Er) 450 mg PO BEDTIME NATHALY Last Admin: 10/14/23 20:51 Dose: 450 mg Lorazepam (Lorazepam 1 Mg Tablet) 2 mg PO BID PRN PRN Reason: agitation, anxiety Last Admin: 10/14/23 20:51 Dose: 2 mg Magnesium Hydroxide (Milk Of Magnesia 30 Ml Oral.Susp) 30 ml PO DAILY PRN PRN Reason: Constipation Trazodone HCl (Trazodone Hcl 50 Mg Tablet) 50 mg PO BEDTIME MRX1 PRN PRN Reason: Insomnia Allergies Allergies Allergy/AdvReac Type Severity Reaction Status Date / Time NSAIDS (Non-Steroidal AdvReac Gastrointestinal Verified 08/16/23 10:38 Anti-Inflamma Upset Assessment & Plan Assessment & Plan (1) Schizoaffective disorder: Status: Acute Code(s): F25.9 - Schizoaffective disorder, unspecified Plan continue home meds for now. check clozapine and lithium levels 10/14 mago. observe behavior. 10/15: Continue current plans and regimen Reason for continued inpatient stay Substantial Risk for: med/psych decompensation Time Spent With Patient Time: Total time managing care of this patient today ____ minutes.
[2023-10-15] MEDS: LORazepam 1 MG TABLET 2 MG PO ×2 (16:18→22:35)
[2023-10-15 20:23] VITALS: BP 117/79; PULSE 95; RESP 17; TEMP 36.8; O2SAT 99
[2023-10-15] MEDS: cloZAPine 100 MG TABLET 400 MG PO (22:35)
[2023-10-15] MEDS: Lithium Carbonate ER 450 MG TABLET.ER PO (22:35)
[2023-10-16 10:50] VITALS: BP 108/72; PULSE 105; RESP 18; TEMP 37; O2SAT 98
[2023-10-16] MEDS: Lithium Carbonate ER 300 MG TABLET.ER 600 MG PO (10:52)
[2023-10-16] MEDS: FLUoxetine HCl 20 MG CAPSULE 40 MG PO (10:52)
--- NOTE | 2023-10-16 11:06 | P.PNPSI_ITS ---
Subjective Subjective Date of Service: 10/16/23 Reason For Visit: Psychosis Subjective Notes: Conditional Voluntary Interim History: Patient was seen and discussed in rounds today. Records and plans were reviewed. He has continues to be improving. He is eating and sleeping adequately. Denies depression but some anxiety still present. Mostly withdrawn. No complaints or side effects. No SI. No changes were made. [place] level on 10/14 was 0.43 Review of Systems Review of Systems Yes all other systems are reviewed and are negative Mental Status Exam Mental Status Exam Narrative: In today's visit he is alert, oriented and pleasant. Soft-spoken speech. Little eye contact. Affect is constricted. No acute signs of psychosis. No delusions. No SI. Cognitively intact. Judgment is intact Diagnostics Vital Signs (24Hr): Vital Signs - 24 hr 10/15/23 20:23 10/16/23 10:50 Temperature 98.2 F 98.6 F Pulse Rate 95 105 H Respiratory Rate 17 18 Blood Pressure 117/79 108/72 Pulse Oximetry 99 98 Oxygen Delivery Method Room Air Room Air BMI result Body Mass Index 35.0 Labs 10/11/23 14:44 10/11/23 14:44 Labs: Laboratory Results - last 48 hr 10/14/23 20:38 [place] 0.43 L Medications Medications Current Medications Acetaminophen (Acetaminophen 325 Mg Tablet) 650 mg PO Q6H PRN PRN Reason: Headache/Pain Mild Scale (1-3) Al Hydroxide/Mg Hydroxide (Magnesium Hydrox/Alum Hydrox 30 Ml Oral.Susp) 30 ml PO Q6H PRN PRN Reason: Heartburn/Nausea Clozapine (Clozapine 100 Mg Tablet) 400 mg PO BEDTIME [facility] Last Admin: 10/15/23 22:35 Dose: 400 mg Fluoxetine HCl (Fluoxetine Hcl 20 Mg Capsule) 40 mg PO DAILY [facility] Last Admin: 10/16/23 10:52 Dose: 40 mg Hydroxyzine HCl (Hydroxyzine Hcl 25 Mg Tablet) 25 mg PO Q6H PRN PRN Reason: Anxiety [place] Carbonate ([place] Carbonate Er 300 Mg Tablet.Er) 600 mg PO DAILY [facility] Last Admin: 10/16/23 10:52 Dose: 600 mg [place] Carbonate ([place] Carbonate Er 450 Mg Tablet.Er) 450 mg PO BEDTIME [facility] Last Admin: 10/15/23 22:35 Dose: 450 mg Lorazepam (Lorazepam 1 Mg Tablet) 2 mg PO BID PRN PRN Reason: agitation, anxiety Last Admin: 10/15/23 22:35 Dose: 2 mg Magnesium Hydroxide (Milk Of Magnesia 30 Ml Oral.Susp) 30 ml PO DAILY PRN PRN Reason: Constipation Trazodone HCl (Trazodone Hcl 50 Mg Tablet) 50 mg PO BEDTIME MRX1 PRN PRN Reason: Insomnia Allergies Allergies Allergy/AdvReac Type Severity Reaction Status Date / Time NSAIDS (Non-Steroidal AdvReac Gastrointestinal Verified 08/16/23 10:38 Anti-Inflamma Upset Assessment & Plan Assessment & Plan (1) Schizoaffective disorder: Status: Acute Code(s): F25.9 - Schizoaffective disorder, unspecified Plan continue home meds for now. check clozapine and lithium levels 10/14 mago. observe behavior. 10/15: Continue current plans and regimen 10/16:Continue current regimen and plans Reason for continued inpatient stay Substantial Risk for: med/psych decompensation Time Spent With Patient Time: Total time managing care of this patient today ____ minutes.
[2023-10-16 19:10] VITALS: BP 124/75; PULSE 101; TEMP 36.7; O2SAT 99
[2023-10-16] MEDS: Lithium Carbonate ER 450 MG TABLET.ER PO (20:33)
[2023-10-16] MEDS: cloZAPine 100 MG TABLET 400 MG PO (20:33)
[2023-10-17 07:25] VITALS: BP 118/73; PULSE 98; TEMP 36.6; O2SAT 90
[2023-10-17] MEDS: FLUoxetine HCl 20 MG CAPSULE 40 MG PO (08:54)
[2023-10-17] MEDS: Lithium Carbonate ER 300 MG TABLET.ER 600 MG PO ×2 (08:54→20:16)
[2023-10-17 09:25] LABS: Neut%MD 68.4 %; WBCANC 10.2 X10*3/uL
--- NOTE | 2023-10-17 13:53 | P.PNPSI_ITS ---
Subjective Subjective Date of Service: 10/17/23 Reason For Visit: Psychosis Interim History: stable mood, denies voices. amenable to increase lithium from 1050 daily to 1200 daily, as lithium level is 0.43 on 1050 daily. per staff, taking medications. had PRN of ativan 2 mg on tuesday. isolative, no groups over w/e. sleeping well. Mental Status Exam Mental Status Exam Narrative: Appearance: wearing street clothes, fair hygiene in NAD. mildly malodorous. Behavior: calm, cooperative Psychomotor: no PMA/PMR Speech: clear, decr amount, nml rate, nml loudness, nml latency TP: linear, logical TC: no delusions or paranoia expressed affect: constricted, hypo-intense, non-labile mood: good SI/SIBI: none expressed HI: none expressed VH/AH: none Insight/judgment: fair x 2. Diagnostics Vital Signs (24Hr): Vital Signs - 24 hr 10/16/23 19:10 10/17/23 07:25 Temperature 98.0 F 97.9 F Pulse Rate 101 H 98 Blood Pressure 124/75 118/73 Pulse Oximetry 99 90 L Oxygen Delivery Method Room Air Room Air BMI result Body Mass Index 35.0 Labs 10/11/23 14:44 10/11/23 14:44 Labs: Laboratory Results - last 48 hr 10/17/23 09:07 Absolute Neuts (auto) 7.0 Hold Yellow Top See Note Medications Medications Current Medications Acetaminophen (Acetaminophen 325 Mg Tablet) 650 mg PO Q6H PRN PRN Reason: Headache/Pain Mild Scale (1-3) Al Hydroxide/Mg Hydroxide (Magnesium Hydrox/Alum Hydrox 30 Ml Oral.Susp) 30 ml PO Q6H PRN PRN Reason: Heartburn/Nausea Clozapine (Clozapine 100 Mg Tablet) 400 mg PO BEDTIME [facility] Last Admin: 10/16/23 20:33 Dose: 400 mg Fluoxetine HCl (Fluoxetine Hcl 20 Mg Capsule) 40 mg PO DAILY [facility] Last Admin: 10/17/23 08:54 Dose: 40 mg Hydroxyzine HCl (Hydroxyzine Hcl 25 Mg Tablet) 25 mg PO Q6H PRN PRN Reason: Anxiety [place] Carbonate ([place] Carbonate Er 300 Mg Tablet.Er) 600 mg PO BID [facility]ATH[facility] Magnesium Hydroxide (Milk Of Magnesia 30 Ml Oral.Susp) 30 ml PO DAILY PRN PRN Reason: Constipation Trazodone HCl (Trazodone Hcl 50 Mg Tablet) 50 mg PO BEDTIME MRX1 PRN PRN Reason: Insomnia Allergies Allergies Allergy/AdvReac Type Severity Reaction Status Date / Time NSAIDS (Non-Steroidal AdvReac Gastrointestinal Verified 08/16/23 10:38 Anti-Inflamma Upset Assessment & Plan Assessment & Plan (1) Schizoaffective disorder: Status: Acute Code(s): F25.9 - Schizoaffective disorder, unspecified Plan 10/14: continue home meds for now. check clozapine and lithium levels 10/14 mago. observe behavior. 10/15: Continue current plans and regimen 10/16:Continue current regimen and plans 10/17: increase lithium from 600/450 to 600 BID due to lithium level 0.43 on 1050 daily. stable. did need ativan PRN 2 mg on tuesday. 3-day notice up weds. clozapine level pending. planning for discharge weds unless rescinds 3- day notice. Reason for continued inpatient stay Substantial Risk for: harm to others, inability to function and rapid decompensation Time Spent With Patient Time: Total time managing care of this patient today __25__ minutes.
[2023-10-17] MEDS: cloZAPine 100 MG TABLET 400 MG PO (20:16)
[2023-10-17 20:20] VITALS: BP 131/78; PULSE 89; RESP 16; TEMP 36.8; O2SAT 99
[2023-10-18 07:34] VITALS: BP 114/74; PULSE 90; RESP 16; TEMP 36.7; O2SAT 97
[2023-10-18] MEDS: Lithium Carbonate ER 300 MG TABLET.ER 600 MG PO ×2 (08:25→21:00)
[2023-10-18] MEDS: FLUoxetine HCl 20 MG CAPSULE 40 MG PO (08:25)
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
[2023-10-18 19:50] VITALS: BP 139/87; PULSE 100; RESP 16; TEMP 36.9; O2SAT 99
[2023-10-18] MEDS: cloZAPine 100 MG TABLET 400 MG PO (21:00)
[2023-10-19 07:15] LABS: Clozapine (Clozaril) 272 mcg/L; Norclozapine 198 mcg/L (25-400)
[2023-10-19 07:40] VITALS: BP 122/81; PULSE 96; RESP 18; TEMP 36.6; O2SAT 96
[2023-10-19] MEDS: FLUoxetine HCl 20 MG CAPSULE 40 MG PO (09:15)
[2023-10-19] MEDS: Lithium Carbonate ER 300 MG TABLET.ER 600 MG PO (09:15)
== END 2023-10-19 10:23 | disposition home or self-care (01) | DRG 750 ==
LOC: HO.ED 16:06 → HO.PADLT16 10-13 14:47
PROVIDERS: Physician Assistant; Admitting Provider Psychiatry & Neurology Psychiatry; Emergency Provider Emergency Medicine Emergency Medical Services; Visit Provider Psychiatry & Neurology Psychiatry
DX: F20.0 Paranoid schizophrenia (principal); R45.851 Suicidal ideations; R45.850 Homicidal ideations; F17.210 Nicotine dependence, cigarettes, uncomplicated; Z20.822 Contact with and (suspected) exposure to COVID-19; Z91.52 Personal history of nonsuicidal self-harm; Z71.6 Tobacco abuse counseling; Z79.899 Other long term (current) drug therapy
CPT/HCPCS: 36415; 80053; 80143; 80159; 80178; 80179; 80307; 81001; 85025; 85048; 87635; 90686; 93005; 99285; S9485

== ENCOUNTER → 2023-10-11 10:54 | Outpatient (BNV) | payer OTHER, SELFPAY | PROVIDERS: Emergency Provider Emergency Medicine Emergency Medical Services; Visit Provider Psychiatry & Neurology Psychiatry | DX: F20.9 Schizophrenia, unspecified (principal) | CPT/HCPCS: 90792; 99231; 99232; 99239 ==

== ENCOUNTER → 2023-10-11 14:29 | Outpatient (BNV) | payer OTHER, SELFPAY | PROVIDERS: Emergency Provider Emergency Medicine Emergency Medical Services; Visit Provider Internal Medicine | DX: R00.0 Tachycardia, unspecified (principal) | CPT/HCPCS: 93010 ==

== ENCOUNTER 2024-08-30 16:15 | Outpatient (AMB) | payer OTHER, SELFPAY ==
[2024-08-30 16:15] VITALS: BP 138/90; PULSE 116; O2SAT 97; BMI 40.2
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
== END 2024-08-30 16:46 | disposition home or self-care (01) ==
PROVIDERS: Visit Provider Internal Medicine
DX: Z00.00 Encounter for general adult medical examination without abnormal findings (principal); F20.9 Schizophrenia, unspecified; Z68.41 Body mass index [BMI] 40.0-44.9, adult; E66.9 Obesity, unspecified; E78.00 Pure hypercholesterolemia, unspecified; Z72.0 Tobacco use

== ENCOUNTER → 2024-08-30 16:15 | Outpatient (BNVA) | payer OTHER, SELFPAY | PROVIDERS: Visit Provider Internal Medicine | DX: Z00.01 Encounter for general adult medical examination with abnormal findings (principal); Z23 Encounter for immunization; E66.9 Obesity, unspecified; Z68.41 Body mass index [BMI] 40.0-44.9, adult; E78.00 Pure hypercholesterolemia, unspecified; F20.9 Schizophrenia, unspecified; Z72.0 Tobacco use; Z71.3 Dietary counseling and surveillance; Z71.6 Tobacco abuse counseling | CPT/HCPCS: 90471; 90656; 96127; 99395 ==

== ENCOUNTER 2025-02-14 10:02 | Outpatient (AMB) | payer OTHER, SELFPAY ==
--- NOTE | 2025-02-14 10:15 | MHC.PC.OV ---
Vital Signs 02/14/25 10:18 Height 5 ft 9 in Weight 272 lb 8 oz BMI 40.2 BP 120/78 Blood Pressure Location Lt brachial Position Sitting Pulse 95 Pulse Source Pulse Oximeter Temp 96.9 F Temp Source Temporal Artery Scan Pulse Oximetry (%) 96 Oxygen Delivery Method Room Air Intake Visit Reasons: hypercholesterol Intake Note: Patient is here to follow up on Hypercholesterol. 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 Accompanied by: Mother Allergies NSAIDS (Non-Steroidal Anti-Inflamma Adverse Reaction (Verified 02/14/25 10:17) Gastrointestinal Upset Tobacco use date assessed: 02/14/25 Dental Screening Dental Screen Date: 02/14/25 Did you have a dental visit in the last 12 months?: No Did you have a dental problem in the last 6 months where you did not have access to dental care?: No Was dental information given to patient?: Patient has dentist [facility] Medical History (Updated 02/14/25 @ 10:30 by Chente Arango MD) Schizoaffective disorder Schizophrenia Surgical History (Updated 02/14/25 @ 10:21 by CORNELL Gamble) No pertinent past surgical history Family History (Updated 02/14/25 @ 10:16 by CORNELL Gamble) Mother No problems noted. Father No problems noted. Brother No problems noted. Maternal Grandmother Breast cancer Social History (Updated 02/14/25 @ 10:21 by CORNELL Gamble) Household Members: Family Household Members Other:: Mother Housing: Apartment Do you presently have visiting nurse or other home services: No Alcohol intake: never Patient Tobacco Use Status: Former Tobacco user Tobacco use type: Cigarette Cigarette Packs Per Day: 0.25 Cigarettes Per Day: 5.0 Years Smoked: once q five days Packs Per Year: 0 Packs per year/per ci.00 e-Cigarette/Vaping Use: Never Used Second Hand Smoke Exposure: Yes Substance Use Type: Marijuana service: No Current occupational status: unemployed Sexual orientation: Unable to collect Cognitive needs: No Hearing needs: No Vision needs: Yes (Glasses) Questionnaire PHQ-9 Over the last 2 weeks, how often have you been bothered by any of the following problems? 1. Little interest or pleasure in doing things: not at all 2. Feeling down, depressed, or hopeless: not at all 3. Trouble falling or staying asleep, or sleeping too much: not at all 4. Feeling tired or having little energy: not at all 5. Poor appetite or overeating: not at all 6. Feeling bad about yourself - or that you are a failure or have let yourself or your family down: not at all 7. Trouble concentrating on things, such as reading the newspaper or watching television: not at all 8. Moving or speaking so slowly that other people could have noticed. Or the opposite - being so fidgety or restless that you have been moving around a lot more than usual: not at all 9. Thoughts that you would be better off or of hurting yourself in some way: not at all Total score: 0 Depression Screening Interpretation: Negative Depression Screening Done: Yes Source: Developed by Drs. Howie Boalños, Corinne Jordan, Mu Taveras and colleagues, with an educational ajith from [employer]. Thrive Questionnaire Date Thrive assessed: 02/14/25 AUDIT C Alcohol Use Questionnaire (AUDIT-C) 1. How often do you have a drink containing alcohol?: Never Total Score: 0 LOVELY-7 AMB Questionnaire LOVELY-7 Date LOVELY - 7 assessed: 02/14/25 Feeling nervous, anxious, or on edge: 0 = Not at all Not being able to stop or control worryin = Not at all Worrying too much about different things: 0 = Not at all Trouble relaxin = Not at all Being so restless that it is hard to sit still: 0 = Not at all Becoming easily annoyed or irritable: 0 = Not at all Feeling afraid as if something awful might happen: 0 = Not at all Total LOVELY-7 score (0-4 normal; 5-9 mild; 10-14 moderate; 15-21 severe): 0 Source: Developed by Drs. Howie Bolaños, Corinne Jordan, Mu Taveras and colleagues, with an educational ajith from [employer]. Physical exam (Primary Care) Vital Signs: Last Vital Signs Temp 96.9 F 02/14/25 10:18 Pulse 95 02/14/25 10:18 BP 120/78 02/14/25 10:18 Pulse Ox 96 02/14/25 10:18 Oxygen Delivery Method Room Air 02/14/25 10:18 BMI result Body Mass Index 40.2 Tobacco/Smoking Status: Tobacco use Status Tobacco use date assessed 02/14/25 02/14/25 10:22 Patient Tobacco Use Status Former Tobacco user 02/14/25 10:22 Tobacco use type Cigarette 02/14/25 10:21 e-Cigarette/Vaping Use Never Used 02/14/25 10:22 PHQ-9: PHQ-9 Score PHQ-9: Total score 0 02/14/25 10:40 Depression Screening Interpretation: Negative Thrive Assessment: Date of Thrive Assessment Date Thrive assessed 02/14/25 02/14/25 10:16 Const General: alert; No acute distress Eyes Conjunctivae: conjunctivae normal Resp Auscultation: clear to auscultation bilaterally Cardio Rate: regular rate Rhythm: regular rhythm GI Inspection: Yes normal to inspection Extrem General: Yes normal to inspection and No edema Immunizations pneumoc 20-krystal conj-dip cr(PF) 0.5 mL IM syringe Performing Provider: Chente Arango MD [place] [facility] [place] [facility] Administered by: KAYRN Webster on 02/14/25 10:39 Dose Route Admin Location Dispensed Lot Number Expiration Date [facility] Car Checker 0.5 mL IM Left Deltoid 0.5 mL [id number] 12/08/25 Phase Holographic ImagingETH/TripleLift VIS Given Date VIS Provided VIS Publication Date 02/14/25 Single Vaccine 23 Eligibility Eligibility Date Funding Source Not [facility] Eligible 02/14/25 Private Coding Level of Care Code Est Pt Level 4 (01449) Diagnoses Hypercholesterolemia E78.00 Obesity (BMI 30-39.9) E66.9 Chronic schizophrenia F20.9 Tobacco abuse Z72.0 Assessment & Plan Assessment & Plan (1) Hypercholesterolemia: Code(s): E78.00 - Pure hypercholesterolemia, unspecified Category: Medical Plan: Avoid the foods that causes that usually spicy foods, tomato products, juices, coffee, soda and foods that your sensitive to. After eating do not lie down, allow 3-4 hours before in lie down. And keep the head of bed above 30 degrees to avoid the acid from going up. LDL goal of less than 130 and triglyceride of less than 150. (2) Obesity (BMI 30-39.9): Code(s): E66.9 - Obesity, unspecified Category: Medical Plan: Diet and exercise (3) Chronic schizophrenia: Comment: Dr. Ji CHD Code(s): F20.9 - Schizophrenia, unspecified Category: Medical Plan: Continue with psychiatry as well as medications on clozapine fluoxetine lithium lorazepam (4) Tobacco abuse: Comment: STOPPED 12/2023 Code(s): Z72.0 - Tobacco use Category: Medical Plan: Patient is strongly advised to stop smoking !! Plan History of Present Illness The patient is a 34-year-old male presenting for follow-up regarding elevated laboratory results, specifically addressing hypercholesterolemia and hyperglycemia. Recent laboratory tests from September 05, 2024, revealed mild leukocytosis with normal platelet counts. Blood glucose was marginally elevated at 100 mg/dL, and sodium levels were slightly high at 146 mEq/L. An LDL cholesterol level of 133 mg/dL was recorded, above the target goal of <130 mg/dL, prompting ongoing cholesterol management. The patient reports maintaining stable weight since the last visit. Despite no regular exercise regimen, he intends to join a gym. Additionally, the patient has quit smoking for one to two months, utilizing nicotine gum occasionally. Health Maintenance - Vaccinations: Tetanus shot up to date; flu vaccine administered. - Discussed smoking cessation and recent stop with nicotine gum. - Dietary and exercise plans emphasized, including LDL goal <130 mg/dL, and triglyceride target <150 mg/dL. - Discussed risks associated with hyperglycemia and hypernatremia. Social History - Recent cessation of smoking, previously reported tobacco use. - Sedentary lifestyle with plans to start gym activities. - Stable weight with no recent changes. Review of Systems - General: Denies changes in weight. - Cardiovascular: Denies signs or symptoms of cardiovascular issues. - Respiratory: Denies respiratory complaints. - Endocrine: Reports elevated glucose level. - Neurologic: Denies neurological symptoms. - Hematologic: Reports mild leukocytosis. - Renal/Electrolytes: Reports elevated sodium level. Physical Exam Results - Labs: Mild leukocytosis; normal platelet counts; glucose 100 mg/dL; sodium 146 mEq/L; LDL cholesterol 133 mg/dL; Hemoglobin A1c 5.2%; normal B12. Plan For hypercholesterolemia, aim for LDL <130 mg/dL through diet and exercise. Address hyperglycemia by monitoring diet and increasing activity. For hypernatremia, decrease salt intake and hydrate adequately. Tobacco cessation is successful; pneumococcal vaccine was administered. Follow-up planned at next physical. Patient was informed and verbally consented to the use of an ambient scribe for clinic note documentation during this visit. Discussion Notes During the consultation, I reviewed the patient's recent blood work, highlighting areas of concern, including elevated LDL cholesterol and hypernatremia. We discussed the implications of these findings, and I stressed the importance of dietary modifications and initiating an exercise regimen to manage these abnormalities. The patient has made significant progress by quitting smoking, and I praised his use of nicotine gum to aid cessation. We reviewed the purpose and recommended timing of administering the pneumococcal vaccine, given the patient's smoking history. I encouraged the patient to stay hydrated and reduce sodium intake. Plans for follow-up at his next physical visit were confirmed for further assessment. Patient Instructions - Aim to lower LDL cholesterol through diet and exercise. - Monitor and limit intake of carbohydrates to address elevated blood sugar. - Ensure adequate hydration and reduce dietary salt to help with high sodium levels. - Continue workout plans as discussed. - Maintain smoking cessation; utilize resources as needed. - Expect a follow-up appointment at your next physical examination. Orders: Orders Pneumococcal 20 Immunization Today Z23 - Encounter for immunization
[2025-02-14 10:18] VITALS: BP 120/78; PULSE 95; TEMP 36.1; O2SAT 96; BMI 40.2
== END 2025-02-14 11:39 | disposition home or self-care (01) ==
LOC: HO.HMCH 10:03
PROVIDERS: PCP Internal Medicine; Visit Provider Internal Medicine
DX: E78.00 Pure hypercholesterolemia, unspecified (principal); E66.9 Obesity, unspecified; F20.9 Schizophrenia, unspecified; Z68.41 Body mass index [BMI] 40.0-44.9, adult; Z72.0 Tobacco use; Z23 Encounter for immunization

== ENCOUNTER → 2025-02-14 10:02 | Outpatient (BNVA) | payer OTHER, SELFPAY | PROVIDERS: PCP Internal Medicine; Visit Provider Internal Medicine | DX: E78.00 Pure hypercholesterolemia, unspecified (principal); E66.9 Obesity, unspecified; F20.9 Schizophrenia, unspecified; Z23 Encounter for immunization; Z87.891 Personal history of nicotine dependence | CPT/HCPCS: 90471; 90677; 99212 ==

== ENCOUNTER 2025-09-12 10:04 | Outpatient (AMB) | payer OTHER, SELFPAY ==
--- NOTE | 2025-09-12 10:23 | MHC.PC.OV ---
Vital Signs 09/12/25 10:24 Height 5 ft 9 in Weight 289 lb 2 oz BMI 42.7 BP 124/86 Blood Pressure Location Lt brachial Position Sitting Pulse 104 H Pulse Source Pulse Oximeter Temp 97.0 F Temp Source Temporal Artery Scan Pulse Oximetry (%) 95 Oxygen Delivery Method Room Air Intake Visit Reasons: annual exam Accompanied by: Mother Allergies NSAIDS (Non-Steroidal Anti-Inflamma Adverse Reaction (Verified 09/12/25 10:33) Gastrointestinal Upset Medication List - Last Reconciled 09/12/25 by Chente Arango MD clozapine 400 mg PO BEDTIME fluoxetine 40 mg PO DAILY lithium carbonate ER 600 mg (2 x 300 mg) PO BID 30 days lorazepam 2 mg PO BID PRN Tobacco use date assessed: 09/12/25 Dental Screening Dental Screen Date: 09/12/25 Did you have a dental visit in the last 12 months?: No Did you have a dental problem in the last 6 months where you did not have access to dental care?: No Was dental information given to patient?: No [facility] Medical History Schizoaffective disorder Schizophrenia Surgical History No pertinent past surgical history Family History Mother No problems noted. Father No problems noted. Brother No problems noted. Maternal Grandmother Breast cancer Social History (Updated 09/12/25 @ 10:44 by Chente Arango MD) Household Members: Family Household Members Other:: Mother Housing: Apartment Do you presently have visiting nurse or other home services: No Alcohol intake: never Patient Tobacco Use Status: Former Tobacco user Tobacco use type: Cigarette Cigarette Packs Per Day: 0.25 Cigarettes Per Day: 5.0 Years Smoked: once q five days stopped 12/2023 Packs Per Year: 0 Packs per year/per ci.00 e-Cigarette/Vaping Use: Never Used Second Hand Smoke Exposure: Yes Substance Use Type: Marijuana service: No Current occupational status: unemployed Sexual orientation: Unable to collect Cognitive needs: No Hearing needs: No Vision needs: Yes (Glasses) Questionnaire PHQ-9 Over the last 2 weeks, how often have you been bothered by any of the following problems? 1. Little interest or pleasure in doing things: not at all 2. Feeling down, depressed, or hopeless: several days 3. Trouble falling or staying asleep, or sleeping too much: not at all 4. Feeling tired or having little energy: several days 5. Poor appetite or overeating: not at all 6. Feeling bad about yourself - or that you are a failure or have let yourself or your family down: not at all 7. Trouble concentrating on things, such as reading the newspaper or watching television: not at all 8. Moving or speaking so slowly that other people could have noticed. Or the opposite - being so fidgety or restless that you have been moving around a lot more than usual: not at all 9. Thoughts that you would be better off or of hurting yourself in some way: not at all Total score: 2 Depression Screening Interpretation: Positive Depression Screening Done: Yes Source: Developed by Drs. Howie Bolaños, Corinne Jordan, Mu Taveras and colleagues, with an educational ajith from [employer]. Thrive Questionnaire Date Thrive assessed: 09/12/25 I am a: Patient What is your living situation today?: I have a steady place to live Within the past 12 months, did the food you bought not last and you didn't have the money to get more?: Never true Within the past 12 months, did you worry whether your food would run out before you got money to buy more?: Never true Do you have trouble paying for medicines?: No Do you have trouble getting transportation to medical appointments?: No Do you have trouble paying your heating and electricity bill?: No Do you have trouble taking care of your child, family member or friend?: No Do you have trouble with day-to-day activities such as bathing, preparing meals, shopping, managing finances, etc.?: No Are you currently unemployed and looking for a job?: No Are you interested in more education?: Yes Please select the resources that you would like help with: Job search/training Currently or been in a relationship where the following occur: No concerns reported THRIVE Score: 0 AUDIT C Alcohol Use Questionnaire (AUDIT-C) 1. How often do you have a drink containing alcohol?: Never 3. How often do you have six or more drinks on one occasion?: Never Total Score: 0 LOVELY-7 AMB Questionnaire LOVELY-7 Date LOVELY - 7 assessed: 09/12/25 Feeling nervous, anxious, or on edge: 1 = Several days Not being able to stop or control worryin = Not at all Worrying too much about different things: 0 = Not at all Trouble relaxin = Several days Being so restless that it is hard to sit still: 0 = Not at all Becoming easily annoyed or irritable: 0 = Not at all Feeling afraid as if something awful might happen: 0 = Not at all Total LOVELY-7 score (0-4 normal; 5-9 mild; 10-14 moderate; 15-21 severe): 2 Source: Developed by Drs. Howie Bolaños, Corinne Jordan, Mu Taveras and colleagues, with an educational ajith from [employer]. LOVELY-7 Assessment Billing LOVELY-7 Assessment Tool: LOVELY-7 Assessment 59288 Review of Systems Const Denies poor appetite and Denies weakness Eyes Denies no additional complaints ENT Reports Normal hearing present, Denies dizziness, Denies nasal congestion, Denies tinnitus and Denies sore throat Card Denies chest pain, Denies syncope, Denies rapid heart rate and Denies dyspnea Resp Denies cough and Denies dyspnea GI Denies change in stool character, Reports constipation, Denies diarrhea, Denies nausea and Denies vomiting Denies dysuria and Denies urinary frequency Neuro Reports Normal hearing present, Denies confusion, Denies dizziness, Denies syncope and Denies weakness Psych Denies confusion Physical exam (Primary Care) Vital Signs: Last Vital Signs Temp 97.0 F 09/12/25 10:24 Pulse 104 H 09/12/25 10:24 BP 124/86 09/12/25 10:24 Pulse Ox 95 09/12/25 10:24 Oxygen Delivery Method Room Air 09/12/25 10:24 BMI result Body Mass Index 42.7 Tobacco/Smoking Status: Tobacco use Status Tobacco use date assessed 09/12/25 09/12/25 10:34 Patient Tobacco Use Status Former Tobacco user 09/12/25 10:44 Tobacco use type Cigarette 09/12/25 10:44 e-Cigarette/Vaping Use Never Used 09/12/25 10:44 PHQ-9: PHQ-9 Score PHQ-9: Total score 2 09/12/25 10:41 Depression Screening Interpretation: Positive Thrive Assessment: Date of Thrive Assessment Date Thrive assessed 09/12/25 09/12/25 10:27 Currently or been in a relationship where the following occur: No concerns reported Const General: alert and awake; No confusion Orientation/consciousness: No confusion HENMT Head: Yes normocephalic Ears: external ears normal and TM's normal bilaterally Face and sinus: Yes normal facial exam Mouth: moist mucous membranes Throat: Yes tonsils normal Eyes Conjunctivae: conjunctivae normal Pupils: Equal, round and reactive pupils present and Pupil accommodation reflex normal Direct Ophthalmoscopy: normal light reflex Neck Neck: No lymphadenopathy Thyroid: Thyroid normal Chest Chest palpation & inspection: normal inspection of the chest Resp Effort & Inspection: normal respiratory effort and no audible wheezes Auscultation: clear to auscultation bilaterally, no crackles, no wheezes and lung sounds not diminished Cardio Rate: regular rate Rhythm: regular rhythm Peripheral pulses: radial pulses present and dorsalis pedis present GI Other: visual rectal exam negative Palpation (GI): no masses Auscultation: normal bowel sounds and normoactive bowel sounds Rectal Exam - Male: Yes deferred Male General Exam: Yes normal external exam Skin General skin exam: no rashes or lesions noted Rashes: no rashes Neuro General: deep tendon reflexes 2+ bilaterally and No confusion Cranial nerves: Yes Equal, round and reactive pupils present, Yes Midline tongue present, Yes Normal hearing present and Yes Ability to bilaterally elevate shoulders present Cognition (Neuro): normal cognition Gait exam (Neuro): Normal gait present Motor exam (neuro): 5/5 motor strength present throughout Deep tendon reflexes (DTR's): Right brachioradialis reflex intensity grade: 2+, Left brachioradialis reflex intensity grade: 2+, Right patellar reflex intensity grade: 2+ and Left patellar reflex intensity grade: 2+ Extrem General: No edema Office Procedures Flu Questionnaire Does the patient have a severe egg allergy?: No Does the patient have severe life threatening allergies?: No Does the patient have a fever or illness today?: No Has the patient ever had Guillain-Blissfield Syndrome?: No Has the patient ever had any past reaction to a flu shot?: No Immunizations Fluarix [id number] (PF) 45 mcg (15 mcg x 3)/0.5 mL IM syringe Performing Provider: Chente Arango MD Performing Location: [facility] Administered by: Zohreh Galindo CMA on 09/12/25 10:37 Dose Route Admin Location Dispensed Lot Number Expiration Date [employer] 0.5 mL IM Left Deltoid 0.5 mL [id number] 05/06/26 25845-060-31 [employer] VIS Given Date VIS Provided VIS Publication Date 09/12/25 Single Vaccine 24 Eligibility Eligibility Date Funding Source Not [facility] Eligible 09/12/25 Private Coding Level of Care Code Est Pt Prev Care 18-39y([id number]) Diagnoses Annual physical exam Z00.00 Morbid obesity E66.01 Chronic schizophrenia F20.9 Hypercholesterolemia E78.00 Additional Codes LOVELY-7 Assessment Billing - LOVELY-7 Assessment Tool: LOVELY-7 Assessment [id number] ([id number]) Assessment & Plan Assessment & Plan (1) Annual physical exam: Code(s): Z00.00 - Encounter for general adult medical examination without abnormal findings Category: Medical Plan: Patient is advised to eat healthy, keep well hydrated, keep active and have adequate sleep. (2) Morbid obesity: Code(s): E66.01 - Morbid (severe) obesity due to excess calories Category: Medical Plan: Diet and exercise (3) Chronic schizophrenia: Comment: Dr. Ji CHD Code(s): F20.9 - Schizophrenia, unspecified Category: Medical Plan: Continue with counseling and therapy (4) Hypercholesterolemia: Code(s): E78.00 - Pure hypercholesterolemia, unspecified Category: Medical Plan: Avoid fried foods, chicken skin, eggs, butter margarine, pastries and meat. Be it pork or beef they have a lot of cholesterol patient was requested to have blood work done Plan History of Present Illness The patient is a 34-year-old male presenting for a physical exam. He has a history of schizophrenia, hypercholesterolemia, and morbid obesity. His chronic conditions are managed with clozapine 400 mg at bedtime, fluoxetine 40 mg daily, lithium 600 mg twice daily, and lorazepam 2 mg twice daily as needed for schizophrenia. He also continues with counseling and therapy, and attends two clubhouses six days a week. The patient has gained 17 pounds over the last few months. He reports he has started an exercise program at [employer]. The patient has a history of smoking but quit approximately one year ago and is no longer using nicotine gum. He denies any alcohol use. His last blood work in 2022 showed a normal blood count and electrolytes, with mildly elevated blood sugar. More recent labs for medication monitoring were done one to two months ago through another provider. The patient has no known drug allergies but is advised against taking anti-inflammatory medications due to an interaction with lithium. Family history is notable for a grandmother with breast cancer. He denies any new diagnoses or surgeries since his last visit. Health Maintenance Patient's immunizations, including tetanus, pneumonia, and influenza are up to date. He was praised for remaining abstinent from tobacco for the past year. He was advised on the importance of continued healthy eating and adequate hydration. A follow-up appointment is scheduled in 3 months to monitor weight and overall health. Social History - Tobacco Use: Former smoker, quit one year ago. - Alcohol Use: Denies alcohol consumption. - Exercise: Recently started an exercise program at [employer]. - Social Support: Attends two different clubhouses six days a week. Review of Systems - General: Reports feeling tired at times. Denies fever. - HEENT: Denies hearing problems or dysphagia. - Neurological: Denies dizziness or falls. - Respiratory: Reports snoring lately. Denies paroxysmal nocturnal dyspnea. - Gastrointestinal: Denies nausea or vomiting. Reports normal bowel movements and denies constipation. - Genitourinary: Denies urinary problems. Reports nocturia about once per week. Physical Exam General: Cooperative, healthy appearing, comfortable, no acute distress and well developed Orientation: Patient oriented x3 Limitations: No limitations Head: Normal to inspection Ears: Hearing grossly normal bilaterally Nose: Normal external nose present Face and sinus: Normal facial exam Eyes: Appearance normal, both eyes and all related structures Neck: Normal visual inspection and Yes full ROM Respiratory: Normal respiratory effort and able to speak in complete sentences. Clear to auscultation bilaterally Cardiovascular: Regular rate and rhythm. Normal S1 and S2 GI: Normal to inspection. Soft to palpation and nontender Skin: No rashes or lesions noted Neuro: Patient oriented x3 Extremities: Normal to inspection Results - Labs (2022): Revealed normal blood count, normal electrolytes, and mildly elevated blood sugar. - Labs (Recent): Blood work for medication monitoring was completed one to two months ago by an outside provider. Plan Patient was informed and verbally consented to the use of an ambient scribe for clinic note documentation during this visit. 1. Morbid Obesity The patient has gained 17 pounds in a few months, and has been counseled on the importance of weight loss. He has proactively started an exercise regimen at [employer]. Due to the weight gain and new snoring, there is concern for sleep apnea, and the patient was educated on its risks and symptoms. A home sleep study will be considered if symptoms such as daytime somnolence develop or worsen. The plan is to continue diet and exercise and re-evaluate weight in 3 months. 2. Schizophrenia The patient's schizophrenia appears stable on his current medication regimen. He will continue clozapine 400 mg at bedtime, fluoxetine 40 mg daily, lithium 600 mg twice daily, and lorazepam 2 mg twice daily as needed. He will also continue with counseling and therapy. A request will be made to obtain recent lab results, including kidney and liver function tests, from his psychiatrist, Dr. Youngblood, who manages his clozapine monitoring. 3. Hypercholesterolemia The patient has a history of hypercholesterolemia. An updated lipid panel will be reviewed from the recent blood work ordered by his other provider to guide further management. Discussion Notes I discussed the significant 17-pound weight gain with the patient and his guardian, highlighting my concerns. I explained that this weight gain increases his risk for sleep apnea, a condition where breathing stops during sleep, which can affect the heart long-term. I informed them that a home sleep study is an easy test we can order if he develops symptoms like significant daytime sleepiness. I reviewed his current medications and he confirmed adherence. We discussed the need for regular lab monitoring for his medications, and I confirmed that I will obtain the recent results from his psychiatrist. I commended his successful smoking cessation and his new exercise routine. I advised on continued lifestyle modifications, including healthy eating and hydration, and recommended a follow-up visit in three months to monitor his progress, especially with his weight. Patient Instructions - Continue with your diet and exercise plan to help with weight loss. - Make sure to drink plenty of water and eat healthy foods. - Continue taking your medications as prescribed, including Clozapine, Fluoxetine, [place], and Lorazepam. - Continue with your counseling and therapy. - Let me know if you begin to feel very sleepy during the day, as this could be a sign of a sleep problem we need to check. - Do not start smoking again. - Follow up in the office in about 3 months. - Please contact the office if any new problems or concerns arise before your next appointment. Orders: Orders Influenza [id number] Immunization Today Z23 - Encounter for immunization
[2025-09-12 10:24] VITALS: BP 124/86; PULSE 104; TEMP 36.1; O2SAT 95; BMI 42.7
== END 2025-09-12 11:19 | disposition home or self-care (01) ==
LOC: HO.HMCH 10:06
PROVIDERS: PCP Internal Medicine; Visit Provider Internal Medicine
DX: Z00.00 Encounter for general adult medical examination without abnormal findings (principal); E66.01 Morbid (severe) obesity due to excess calories; F20.9 Schizophrenia, unspecified; Z68.41 Body mass index [BMI] 40.0-44.9, adult; E78.00 Pure hypercholesterolemia, unspecified; Z23 Encounter for immunization

== ENCOUNTER → 2025-09-12 10:04 | Outpatient (BNVA) | payer OTHER, SELFPAY | PROVIDERS: PCP Internal Medicine; Visit Provider Internal Medicine | DX: Z00.00 Encounter for general adult medical examination without abnormal findings (principal); E66.01 Morbid (severe) obesity due to excess calories; F20.9 Schizophrenia, unspecified; E78.00 Pure hypercholesterolemia, unspecified; Z23 Encounter for immunization; Z68.41 Body mass index [BMI] 40.0-44.9, adult | CPT/HCPCS: 90471; 90656; 96127; 99395 ==